=== PATIENT | female | born 1945 | race Caucasian/White ===

== ENCOUNTER → 2016-10-11 | Outpatient (CLI) | payer OTHER | END | disposition home or self-care (01) | LOC: C.MAMM 12:32 | PROVIDERS: ATTEND Internal Medicine | DX: M85.851 Other specified disorders of bone density and structure, right thigh (principal); M85.852 Other specified disorders of bone density and structure, left thigh; M85.88 Other specified disorders of bone density and structure, other site ==

== ENCOUNTER 2023-11-22 20:17 | Observation (INO) ==
[2023-11-22 22:27] LABS: Basophils # (auto) 0.02 K/uL (0.00-0.20); Basophils % (auto) 0.2 %; Eosinophils # (auto) 0.07 K/uL (0.00-0.50); Eosinophils % (auto) 0.7 %; Hematocrit (blood only) 43.1 % (37.0-47.0); Hemoglobin 14.5 g/dl (12.0-16.0); Immature Granulocytes # (auto) 0.03 K/uL (0.01-0.20); Immature Granulocytes % (auto) 0.3 %; Lymphocytes # (auto) 1.44 K/uL (1.20-3.40); Lymphocytes % (auto) 14.4 %; Mean Corpuscular Hemoglobin 30.1 pg (25.0-34.0); Mean Corpuscular Hgb Conc 33.6 g/dL (32.0-36.0); Mean Corpuscular Volume 89.4 fL (80.0-100.0); Mean Platelet Volume 9.4 fL (9.4-12.4); Monocytes # (auto) 0.62 K/uL (0.11-0.59); Monocytes % (auto) 6.2 %; Neutrophils # (auto) 7.85 K/uL (1.40-6.50); Neutrophils % (auto) 78.2 %; Platelet Count 301 K/uL (130-400); RDW Coefficient of Variation 12.5 % (11.5-14.5); RDW Standard Deviation 41.1 fL (36.4-46.3); Red Blood Count 4.82 M/uL (4.20-5.40); White Blood Count 10.03 K/ul (4.8-10.8)
--- NOTE | 2023-11-22 22:45 | Emergency Department Note ---
Impression & Plan Small bowel obstruction ED Provider Note CHIEF COMPLAINT: Abdominal pain HISTORY OF PRESENTING ILLNESS: This 78-year-old female patient presents to the emergency department for evaluation of abdominal pain and gas pains. The pain is across the middle of her abdomen. Symptoms started around noon today. Symptoms have gotten progressively worse. Having nausea, but no vomiting. Denies chest pain or SOB. Denies any urinary symptoms. Had a relatively normal BM this morning, just a little smaller than normal. She denies constipation or diarrhea. However, she has been burping, but has not been able to pass gas since yesterday. Previous history of "twisting" of her bowels from her adhesions per patient, but no history of bowel obstruction per patient. The patient had a hysterectomy, but no other abdominal surgeries. She denies any fevers. She rates her discomfort as 9/10. REVIEW OF SYSTEMS: See HPI for pertinent positives and pertinent negatives. ALLERGIES: Aspartame, Sucralose, Flagyl, Iron, Lactose MEDICATIONS: See below PAST MEDICAL HISTORY: See below PHYSICAL EXAM: VITALS: Vitals are noted on the nurse's note and reviewed by myself. GENERAL: Non toxic, no acute distress, non-diaphoretic. SKIN: Capillary refill <2 sec. EYES: PERRLA. EOMI. Conjunctivae without injection, sclerae without icterus. NOSE: Patent without discharge. MOUTH: Mucous membranes moist. Uvula midline. Airway patent. NECK: Supple without nuchal rigidity. HEART: Regular rate and rhythm without murmurs gallops or rubs. LUNGS: Clear to auscultation bilaterally without wheezes, rales or rhonchi. No retractions or accessory muscle use. ABDOMEN: Abdomen is somewhat distended with increased bowel sounds. The abdomen is still soft, but diffusely tender to palpation. No obvious masses or organomegaly. Arias sign negative. No CVA tenderness. Mild guarding, but no rigidity or rebound tenderness. No focal RLQ or LLQ tenderness. MUSCULOSKELETAL: No gross musculoskeletal defects. NEURO: Patient was alert and oriented. No focal neurological deficits. DIFFERENTIAL DIAGNOSIS: Differential diagnosis includes hepatitis, pancreatitis, cholecystitis, cholelithiasis, appendicitis, kidney stone, pyelonephritis, UTI, gastritis, gastroenteritis, mesenteric adenitis, obstruction, constipation, hernia, abdominal abscess, perforation, diverticulitis, IBD, ischemic colitis, abdominal aortic aneurysm, , ectopic , ovarian cyst, ovarian torsion, acute salpingitis, or others. ED COURSE AND MEDICAL DECISION MAKING: MEDICATIONS GIVEN: 500 mL normal saline solution bolus. Morphine 2 mg IV and Zofran 4 mg IV. MONITOR: Continuous nurse monitoring: Order was placed for continuous nurse monitoring. Patient was placed on the nurse monitoring and continuous pulse ox. Patient was noted to be in normal sinus rhythm at an initial rate of 80 bpm per my interpretation. INTERPRETATION OF LABS: I interpreted the labs with full lab results as below in the lab section of this note. Pertinent lab results discussed in the MDM section below. INTERPRETATION OF IMAGING: KUB interpreted by myself as increased stool with some dilated loops of bowel. No obvious transition point, but there is an unknown abnormality to the right side of the abdomen on imaging. Radiology report still pending. Additional imaging studies were interpreted by myself and read by radiology as per the imaging section of this note. CT scan of the abdomen pelvis with IV contrast shows a distended stomach with multiple dilated small bowel loops with a transition zone in the mid upper pelvis consistent with a high-grade small bowel obstruction. Retained formed stool seen throughout the colon. Dilated intrahepatic bile ducts. CONSULTATIONS: On-call hospitalist MDM SUMMARY: The patient was seen during a time of extreme volume and extreme acuity. Nursing triage protocols were initiated with IV lock, labs, and/or imaging studies conducted by protocol in the triage area. The patient was examined by myself once they were taken back to an exam room. The patient presents to the emergency department for evaluation of abdominal pain, nausea, and difficulty passing gas since noon today. She has a history of previous bowel obstructions. The patient was given 500 mL normal saline solution bolus, morphine 2 mg IV, and morphine 4 mg IV with significant improvement of her symptoms. Based on history and exam, there is concern for small bowel obstruction. KUB interpreted by myself as increased stool with some dilated loops of bowel. No obvious transition point, but there is an unknown abnormality to the right side of the abdomen. Radiology report still pending. CT scan of the abdomen pelvis with IV contrast shows a distended stomach with multiple dilated small bowel loops with a transition zone in the mid upper pelvis consistent with a high-grade small bowel obstruction. Retained formed stool seen throughout the colon. Dilated intrahepatic bile ducts. The patient is not vomiting so NG tube was held in the ER at this time. CBC without leukocytosis, anemia, or thrombocytopenia. Sodium 135, chloride 95, BUN 24, calcium 10.9, and glucose 109. CMP otherwise unremarkable. Lipase normal. High-sensitivity troponin normal. Urinalysis without evidence for UTI. I had a meaningful discussion about this patient with Dr. Martinez who agrees with my assessment and the treatment plan. I spoke with the on-call hospitalist who agreed to admit the patient for further evaluation and treatment. Please refer to their dictation for further details. The patient's care was transferred in stable condition. DIAGNOSIS: Small bowel obstruction Past Med/Surg History Problem List (Updated 11/23/23 @ 08:22 by Veena Bradshaw PA-C) Dehydration Small bowel obstruction (Acute) Encounter for pre-operative examination Epigastric abdominal pain Hypothyroid Medical History Hx of gastroesophageal reflux (GERD) improved Low glucose level per pt she has intermittent issues where her blood sugar levels drop and she takes glucose tablets History of cervical cancer 35yrs ago--had sx Temporomandibular joint disorder does exercises for this and has improved this Hypothyroid Surgical History Hx of cataract extraction left History of esophagogastroduodenoscopy (EGD) History of colonoscopy History of tooth extraction History of wisdom tooth extraction H/O: hysterectomy REBECCA BSO Family History Other No family history of adverse response to anesthesia Social History Smoking Status: Never smoker Second Hand Exposure: No; Do You Dip or Chew Tobacco: No; Hx Alcohol Use: Yes Alcohol type: wine Hx Substance Use: No Preferred Language: Tongan Communication Ability: Effective 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 Beliefs That Will Affect Care: None Current Living Situation: Alone Feels Safe at Home: Yes Assistive Devices: Glasses Allergies Allergies Allergy/AdvReac Type Severity Reaction Status Date / Time aspartame Allergy Intermediate blisters Verified 06/25/23 09:18 in mouth sucralose Allergy Intermediate blisters Verified 06/25/23 09:18 in mouth metronidazole [From Flagyl] Allergy Mild lightheaded Verified 06/25/23 09:18 /nausea iron AdvReac Mild gas Verified 06/25/23 09:18 lactose AdvReac Mild Gastrointestinal Verified 06/25/23 09:18 Upset Home Meds Home Medications Medication Instructions Recorded Confirmed chlorpheniramine maleate 12 mg 12 mg PO Q12H PRN Allergy Symptoms 03/14/22 06/18/23 tablet,extended release levothyroxine 75 mcg tablet 75 mcg PO QAM 03/14/22 06/18/23 ascorbic acid (vitamin C) 1,000 mg 1 g PO QDL 08/16/22 06/18/23 tablet (Vitamin C) calcium carbonate (Calcium 600) 600 mg PO QDL 08/16/22 06/18/23 multivitamin 1 tab PO QDL 08/16/22 06/18/23 pseudoephedrine HCl 60 mg tablet 60 mg PO Q6H PRN allergy symptoms 08/16/22 06/18/23 Results & Data (ED) Vital Signs Vital Signs - 24 hr 11/22/23 20:34 11/22/23 23:36 11/23/23 00:00 Temperature 36 C L Temperature Source Temporal Artery Scan Pulse Rate 81 75 74 Pulse Rate from SpO2 Sensor 74 Pulse Rhythm Regular Pulse Strength Normal Respiratory Rate 16 14 Respiratory Effort / Characteristics Non-Labored Spontaneous Respiratory Depth Normal Respiratory Pattern Regular Blood Pressure 165/75 H 166/79 H Blood Pressure Mean 105 115 Pulse Oximetry 100 99 Oxygen Delivery Method Room Air Sepsis Recent Fever Within 48 Hours No Sepsis New/Unexplained Change in Mental Status No Sepsis Action Taken by Nursing No Action Required 11/23/23 01:33 11/23/23 02:00 11/23/23 02:33 Temperature Temperature Source Pulse Rate 79 74 68 Pulse Rate from SpO2 Sensor Pulse Rhythm Pulse Strength Respiratory Rate 14 14 18 Respiratory Effort / Characteristics Respiratory Depth Respiratory Pattern Blood Pressure 155/79 H 139/73 142/74 H Blood Pressure Mean 104 95 96 Pulse Oximetry 96 97 97 Oxygen Delivery Method Room Air Room Air Room Air Sepsis Recent Fever Within 48 Hours Sepsis New/Unexplained Change in Mental Status Sepsis Action Taken by Nursing 11/23/23 03:39 Temperature Temperature Source Pulse Rate 93 H Pulse Rate from SpO2 Sensor Pulse Rhythm Pulse Strength Respiratory Rate Respiratory Effort / Characteristics Respiratory Depth Respiratory Pattern Blood Pressure Blood Pressure Mean Pulse Oximetry Oxygen Delivery Method Sepsis Recent Fever Within 48 Hours Sepsis New/Unexplained Change in Mental Status Sepsis Action Taken by Nursing Laboratory Data 11/22/23 21:39 11/22/23 21:39 Lab Results 11/22/23 11/22/23 11/23/23 Range/Units 21:39 Unknown 01:38 WBC 10.03 (4.8-10.8) K/ul RBC 4.82 (4.20-5.40) M/uL Hgb 14.5 (12.0-16.0) g/dl Hct 43.1 (37.0-47.0) % MCV 89.4 (80.0-100.0) fL MCH 30.1 (25.0-34.0) pg MCHC 33.6 (32.0-36.0) g/dL RDW Std Deviation 41.1 (36.4-46.3) fL RDW Coeff of Denilson 12.5 (11.5-14.5) % Plt Count 301 (130-400) K/uL MPV 9.4 (9.4-12.4) fL Immature Gran % (Auto) 0.3 % Neut % (Auto) 78.2 % Lymph % (Auto) 14.4 % [place] % (Auto) 6.2 % Eos % (Auto) 0.7 % Baso % (Auto) 0.2 % Neut # (Auto) 7.85 H (1.40-6.50) K/uL Lymph # (Auto) 1.44 (1.20-3.40) K/uL [place] # (Auto) 0.62 H (0.11-0.59) K/uL Eos # (Auto) 0.07 (0.00-0.50) K/uL Baso # (Auto) 0.02 (0.00-0.20) K/uL Immature Gran # (Auto) 0.03 (0.01-0.20) K/uL Sodium 135 L (136-145) mmol/L Potassium 4.1 (3.5-5.1) mmol/L Chloride 95 L (98-107) mmol/L Carbon Dioxide 30 (21-32) mmol/L Anion Gap 10 (3-11) BUN 24 H (6-23) mg/dl Creatinine 0.78 (0.6-1.2) mg/dl Est Cr Clr Drug Dosing 45.2 ml/min Est GFR ( Amer) 85.6 ml/min Est GFR (Non-Af Amer) 73.8 ml/min BUN/Creatinine Ratio 30.8 H (10-20) Glucose 109 H (70-99(Fasting)) mg/dl POC Glucose 125 H (70-99) mg/dl Calcium 10.9 H (8.6-10.3) mg/dl Total Bilirubin 0.5 (0.2-1.0) mg/dl AST 30 (13-39) U/L ALT 20 (7-52) U/L Alkaline Phosphatase 75 (34-104) U/L Troponin I High Sens 7.6 (0-14) pg/ml Total Protein 8.2 (6.0-8.3) gm/dl Albumin 5.0 (3.4-5.0) gm/dl Globulin 3.2 (2.5-4.0) gm/dl Albumin/Globulin Ratio 1.6 (0.9-2) Lipase 17 (11-82) U/L Urine Color Yellow Urine Appearance Turbid A (Clear) Urine pH >= 9.0 H (4.5-7.5) Ur Specific [place] 1.014 (1.000-1.030) Urine Protein Negative (Negative) Urine Glucose (UA) Negative (Negative) Urine Ketones Negative (Negative) Urine Blood Negative (Negative) Urine Nitrite Negative (Negative) Urine Bilirubin Negative (Negative) Urine Urobilinogen Negative (Negative) Ur Leukocyte Esterase Negative (Negative) Urine WBC (Auto) 0-5 (0-5) /hpf Urine RBC (Auto) 11-20 H (0-2) /hpf U Hyaline Cast (Auto) 0-2 (0-2) /lpf U Epithel Cells (Auto) 0-2 (0-2) /hpf Urine Bacteria (Auto) None Seen (None Seen) Administered Medications Potassium Chloride/Sodium Chloride (Normal Saline W/20 Meq Kcl) 20 meq in 1,000 mls @ 100 mls/hr IV .Q10H FILIPE; Protocol Stop: 12/23/23 06:14 Last Admin: 11/23/23 06:17 Dose: 100 mls/hr Documented By: MLM Levothyroxine Sodium (Levothyroxine Sodium 75 Mcg Tablet) 75 mcg PO DAILYBB FILIPE Stop: 12/23/23 06:29 Last Admin: 11/23/23 06:13 Dose: 75 mcg Documented By: AVA Discontinued Medications Bisacodyl (Bisacodyl 10 Mg Supp) 10 mg SC NOW STA Stop: 11/23/23 04:08 Last Admin: 11/23/23 04:22 Dose: 10 mg Documented By: MARIA FERNANDA Sodium Chloride (Nss) 500 mls @ 999 mls/hr IV .Q31M ONE Stop: 11/22/23 23:35 Last Infusion: 11/22/23 23:42 Dose: Infused Documented By: KelT Admin: 11/22/23 23:11 Dose: 999 mls/hr Documented By: MARIA FERNANDA Ioversol (Optiray 320 100ml) 94 ml IV ONCE ONE Stop: 11/22/23 23:34 Last Admin: 11/22/23 23:33 Dose: 94 ml Documented By: CARLIE Morphine Sulfate (Morphine Sulfate 2 Mg/Ml Carp) 2 mg IV NOW STA Stop: 11/22/23 23:06 Last Admin: 11/22/23 23:10 Dose: 2 mg Documented By: MARIA FERNANDA Ondansetron HCl (Ondansetron Inj 2 Mg/Ml 2 Ml Vial) 4 mg IV NOW STA Stop: 11/22/23 23:06 Last Admin: 11/22/23 23:10 Dose: 4 mg Documented By: MARIA FERNANDA Imaging Data Radiologist's Impression: Abdomen/Pelvis CT 11/22/23 23:05 Exam(s): CT ABDOMEN + PELVIS With Contrast IV Amt: 94 ml opti 320 EXAM: CT Abdomen and Pelvis With Intravenous Contrast CLINICAL HISTORY: Reason for exam: Abdominal pain - eval obstruction or other etiology. TECHNIQUE: Axial computed tomography images of the abdomen and pelvis with intravenous contrast. CTDI is 11.37 mGy and DLP is 493.94 mGy-cm. Automated exposure control was utilized for the study. A dose lowering technique was utilized adhering to the principles of ALARA. CONTRAST: Patient received 94 ml opti 320 of IV contrast COMPARISON: Ultrasound abdomen: 08/07/2022 FINDINGS: Diagnostic sensitivity of the exam is reduced by motion artifact. Lung bases: . No mass. No consolidation. No pleural effusion. Mild/moderately enlarged cardiac silhouette. ABDOMEN: Liver: Multiple small rounded hypodense lesions in the right lobe, statistically represent cysts. No solid mass. Gallbladder and bile ducts: Unremarkable. No calcified stones. Dilated intrahepatic bile ducts. Pancreas: Likely an atrophic pancreas. No pancreatic ductal dilation. Spleen: Unremarkable. No splenomegaly. Adrenals: Unremarkable. No mass. Kidneys and ureters: Unremarkable. No solid mass. Mild fullness of the left renal collecting system. No hydronephrosis. Stomach and bowel: Fluid-filled significantly distended and patulous stomach. There are multiple 3.7 cm dilated fluid/air filled small bowel loops are seen throughout the abdomen and pelvis with transition zone seen in the mid upper pelvis (series 2 image 57, series 300 image 28), consistent with high-grade small bowel obstruction. Moderately large amount of retained stool seen throughout the colon. PELVIS: Appendix: No acute findings in the region of the appendix. Bladder: Unremarkable. No mass. Reproductive: Prior partial hysterectomy ABDOMEN and PELVIS: Intraperitoneal space: Unremarkable. No free air. No significant fluid collection. Bones/joints: No acute fracture. No dislocation. Degenerative grade 1 L4 spondylolisthesis. L4-S1 levels moderate degenerative spondylitic changes. Soft tissues: Unremarkable. Vasculature: Unremarkable. No abdominal aortic aneurysm. Lymph nodes: Unremarkable. No enlarged lymph nodes. . IMPRESSION: A distended stomach. Multiple dilated small bowel loops with a transition zone in the mid upper pelvis, consistent with high-grade small bowel obstruction. Retained formed stool seen throughout the colon. Dilated intrahepatic bile ducts. . Electronically signed by: Celina Orlando MD, MIC 11/23/23 02:45 AM Discharge Plan Visit Data Chief Complaint: Abdominal Pain Stated Complaint: ABD GAS/PAIN ED Provider: Abida Martinez ED Midlevel Provider: Veena Bradshaw Discharge Problem: Small bowel obstruction Patient Disposition: Admitted As Inpatient Condition: Good Discharge Instructions Interventions: ED Discharge Assessment Last Done: 11/23/23 05:48
[2023-11-22 22:50] LABS: Albumin Globulin Ratio 1.6 (0.9-2); BUN Creatinine Ratio 30.8 (10-20); Bilirubin,Total 0.5 mg/dl (0.2-1.0); Calcium 10.9 mg/dl (8.6-10.3); Creatinine Clr Calc Pharmacy 45.2 ml/min; Est GFR (African American) 85.6 ml/min; Est GFR (Non-African American) 73.8 ml/min; Globulin 3.2 gm/dl (2.5-4.0); Potassium 4.1 mmol/L (3.5-5.1); Total Protein 8.2 gm/dl (6.0-8.3)
[2023-11-22 22:52] LABS: Appearance Urine Turbid (Clear); Bacteria Urine Automated None Seen (None Seen); Bilirubin Urine Negative (Negative); Blood Urine Negative (Negative); Cast Urine Automated 0-2 /lpf (0-2); Color Urine Yellow; Epithelial Cell Urine Auto 0-2 /hpf (0-2); Glucose Urine UA Negative (Negative); Ketones Urine Negative (Negative); Leukocyte Esterase Urine Negative (Negative); Nitrite Urine Negative (Negative); Protein Urine Negative (Negative); Specific Gravity Urine 1.014 (1.000-1.030); Urobilinogen Urine Negative (Negative); WBC Urine Automated 0-5 /hpf (0-5); pH Urine >= 9.0 (4.5-7.5)
[2023-11-22] MEDS: ONDANSETRON INJ 2 MG/ML 2 ML VIAL IV STA (23:10)
[2023-11-22] MEDS: MoRPHine SULFATE 2 MG/ML CARP IV STA (23:10)
[2023-11-22] MEDS: SODIUM CHLORIDE 0.9% 500 ML IV ONE (23:11)
[2023-11-22] MEDS: OPTIRAY 320 100ml IV ONE (23:33)
[2023-11-22 23:44] LABS: Troponin I High Sensitivity 7.6 pg/ml (0-14)
--- OUTSIDE RECORDS SUMMARY | 2023-11-22 23:59 | External Medical Summary | Continuity of Care Document ---
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 Role Phone Loren Mendieta Primary Care Physician [phone] Encounter [facility] [id number] Date(s): 09/16/23 - 09/16/23 [facility] [address] [facility] [address] [place] [id number] Encounter Diagnosis Seborrheic keratosis(Discharge Diagnosis) - 09/14/23 Matute angioma(Discharge Diagnosis) - 09/14/23 Multiple benign nevi(Discharge Diagnosis) - 09/16/23 Keratoderma(Discharge Diagnosis) - 09/16/23 Onychodystrophy(Discharge Diagnosis) - 09/16/23 Discharge Disposition: Home or Self Care Attending Physician: WILLIAM Carcamo Holly C Allergies, Adverse Reactions, Alerts Substance Criticality Severity Reaction Reaction Severity Status Flagyl Nausea Active sucralose (Splenda) Blisters on tongue Active aspartame Mouth blisters Activ e Assessment and Plan Extracted from: Title:Dermatology Office Visit Note Author:WILLIAM Carcamo Holly C Date:09/16/23 1.Seborrheic keratosis Chronic Stable Discussed benign nature of lesions. May treat prn if become painful or irritated. Discussed signs and symptoms of skin cancer with patient and advised to call and schedule an appointment if develops any new or concerning lesions or wounds that won't heal. Advised to wear hats, sunscreens and SPF clothing. 2.Matute angioma Matute angioma Chronic Stable Discussed the likely benign and genetic nature of these lesions. will monitor. no treatment needed. 3.Multiple benign nevi Chronic Stable Encouraged patient tocall with any concerning lesions, changing lesions, or wounds that won t healin the futureand schedule prompt evaluation in clinic. Recommended patient wear a broad spectrum sunscreen with at least SPF 30 daily. Wear wide brim hats and SPF clothing. No lesions suspicious for cancer. 4.Keratoderma Chronic Knees, feet, moisturize withCeraVesalicylic acid may be used on these areas and on the seborrheic keratosis. 5.Onychodystrophy Fingernails. Chronic Stable soak in luke warmwater for 5-10 minutes then moisturizer with Vaseline or moisturizer. History of actinic keratosis Chronic. Stable. Goal is no symptomatic actinic keratoses or actinic keratoses evolving to skin cancer. Education - risk for evolution to skin cancer is very low. explained to patient that this is considered a precancerous lesion.Warning signs of skin cancer were reviewed. Protection from sun exposure with wide brim hats, sunscreens, and SPF clothing, shade, going out in the morning or evening. Advised patient to call with any problems, questions, or concerns. States understanding. Patient was seen independently,Dr Braggavailable for immediate collaboration as needed during this visit. Will follow up in 1 yearfor skin exam Immunizations Given and Recorded Vaccine Date Status Refusal Reason pneumococcal 20-valent conjugate vaccine 1 02/15/23 Recorded SARS-CoV-2 (COVID-19) mRNA-vacc - [id number] 2 01/10/23 Recorded SARS-CoV-2 mRNA-1273 (6y+ bivalent) 3 02/08/22 Rec orded SARS-CoV-2 (COVID-19) mRNA-1273 vaccine 4 10/03/21 Recorded SARS-CoV-2 (COVID-19) mRNA-1273 vaccine 5 03/17/21 Recorded influenza virus vaccine, inactivated 01/10/21 Give n influenza virus vaccine, inactivated 01/05/20 Give n SARS-CoV-2 (COVID-19) mRNA BNT-162b2 vax 05/05/20 Recorded tetanus/diphtheria/pertuss, acel (Tdap) 07/13/19 R ecorded tetanus/diphtheria/pertuss, acel (Tdap) 07/01/19 R ecorded tetanus/diphtheria/pertuss, acel (Tdap) 6 02/07/10 Recorded zoster vaccine, inactivated 09/09/18 Given zoster vaccine, inactivated 05/05/18 Given pneumococcal 23-valent vaccine 7 09/10/13 Recorded zoster vaccine live 05/10/11 Recorded 1Result Comment: 2023-03-04: Historical information-source unspecified 2Result Comment: 2023-03-04: Historical information-source unspecified 3Result Comment: 2023-03-04: Historical information-source unspecified 4Result Comment: 2023-03-04: Historical information-source unspecified 5Result Comment: 2023-03-04: Historical information-source unspecified 6Result Comment: 2023-03-04: Historical information-source unspecified 7Result Comment: Route: Intramuscularly Food Production Manager: [employer] Medications Calcitrate Start: 09/10/16 2:55:00 PM EDT, 1 tab, PO, Daily Start Date: 09/10/16 Status: Ordered Caltrate 600 Plus oral tablet Start: 10/23/22 11:20:00 AM EDT, 1 tab, PO, Daily Start Date: 10/23/22 Status: Ordered Centrum Start: 09/10/16 2:55:00 PM EDT, 1 tab, PO, Daily Start Date: 09/10/16 Status: Ordered Chlor-Trimeton Start: 07/30/22 3:55:00 PM EDT, PRN: as needed for allergy symptoms Start Date: 07/30/22 Status: Ordered Flonase 50 mcg/inh nasal spray Start: 05/10/23 11:15:00 AM EST, 1 spray, each nostril, Daily Start Date: 05/10/23 Status: Ordered levothyroxine 75 mcg (0.075 mg) oral tablet Start: 02/14/23 6:46:00 PM EST, 1 tab, PO, Daily, Disp# 90 tab, Refills: 3, Pharmacy: [id number] Start Date: 02/14/23 Status: Ordered Sudafed Start: 09/10/16 2:54:00 PM EDT, PRN: as needed for congestion Start Date: 09/10/16 Status: Ordered Suprep Bowel Prep Kit oral liquid Start: 08/14/23 3:13:00 PM EDT, See Instructions, Disp# 354 mL, Refills: 0, Take as directed., Pharmacy: [id number] Start Date: 08/14/23 Status: Ordered Vitamin C Start: 07/05/20 9:30:00 AM EDT Start Date: 07/05/20 Status: Ordered Vitamin D and K oral tablet Start: 06/04/23 1:05:00 PM EST Start Date: 06/04/23 Status: Ordered Mental Status 09/16/23 Barriers to Learning one year None evide nt Mandatory Health Literacy Documentation Yes Health Literacy Communication Barriers N ever Primary Language Yakut Problem List Condition Confirmation Course Effective Dates Status H ealth Status Informant Body mass index [BMI] 21.0-21.9, adult Confirmed Active Callus Confirmed Active Chest pain Confirmed Active Costochondritis Confirmed Active Gas bloat syndrome Confirmed Active ETD (eustachian tube dysfunction) Confirmed Active Fatigue Confirmed Active Hammertoe, bilateral Confirmed Active Heartburn Confirmed Active H/O small bowel obstruction Confirmed Active Low blood sugar Confirmed Active Hypothyroidism Confirmed Active Idiopathic postprandial hypoglycemia Confirmed Active Jaw pain Confirmed Active Intermittent lightheadedness Confirmed Active Low back pain Confirmed Active Metatarsalgia of both feet Confirmed Active Trace mitral valve regurgitation Confirmed Active Tinea unguium Confirmed Active Osteopenia Confirmed Active Annual physical exam Confirmed Active Encounter for preoperative assessment Confirmed Active Poor balance Confirmed Active Seborrheic keratosis Confirmed Active Matute angioma Confirmed Active Shoulder pain Confirmed Active Seasonal allergies Confirmed Active Tinnitus Confirmed Active Diagnosis Diagnosis Type Effective Dates Health Status Clinical Service Informant Seborrheic keratosis Discharge Diagnosis 09/14/23 Non-Specified Matute angioma Discharge Diagnosis 09/14/23 Non-Specified Onychodystrophy Discharge Diagnosis 09/16/23 Non-Specified Keratoderma Discharge Diagnosis 09/16/23 Non-Specified Multiple benign nevi Discharge Diagnosis 09/16/23 Non-Specified Procedures Procedure Date Related Diagnosis Body Site Status Colonoscopy 1, 2 08/28/23 Complete d Cataract 07/2023 Completed Cataract surgery of left eye 3 06/13/23 Completed Plain X-ray of left shoulder 4 10/01/22 Completed Upper GI (gastrointestinal) endoscopy 5, 6 08/28/22 Completed Ultrasound 7 08/07/22 Completed X-ray tomography of lumbar spine 8 01/20/19 Completed Bone density scan 9 10/11/16 Compl eted Hysterectomy Completed 1- The rectum, sigmoid colon, descending colon, splenic flexure, transverse colon, hepatic flexure, ascending colon, cecum and recto-sigmoid colon are normal. - No specimens collected. 2- No repeat colonoscopy due to age. [address] [place] [address] 4no evidence of acute osseous injury. 5Normal esophagus. Normal stomach. Biopsied. Normal duodenal bulb and second portion of the duodenum. 6Pathology: Stomach biopsy: Gastric mucosa with no diagnostic abnormality. Negative for intestinal metaplasia, dysplasia, and malignancy. Neg H.pylori. 71) No cholelithiasis or sonographic evidence for acute cholecystitis 2) No biliary ductal dilation 8Moderate degenerative changes. Osteopenia 9[facility] Impression: 1. AP spine T-score: -2.2 2. Femur neck left T-score: -1.5 3. Femur neck right T-score: -1.8 4. Femur total mean T-score: -1.1 5. Z-score: -0.6 6. BMD is considered within normals limits relative to their age Social History Social History Type Response Smoking Status Never smoked cigaret billy Sex Female Dermatology Outpatient Note * IWLLIAM Carcamo, Mayda Overton: PERFORM Event Display: Dermatology Outpt Note Authored Date: [id number] Chief Complaint Annual skin check. hx actinic keratosis. No concerns. History of Present Illness 77 YearsoldFemalepatient here for skin check. Patient reports area of concern today: spots to be checked. Family history melanoma:no Family history of BCC or SCC yes brotheron leg may have been anSCC KA type and another lesion. Tanning bed use:no History of severe, blistering sunburns:yes Sun protection:Useshats and sunscreens Has had actinic keratosis treated in the past withliquid nitrogen Denies history of skin cancer. No other skin areas of concern. Otherwise healthy.Saw Staci 12/20/2022 for cryotherapy to Seborrheic keratosis. Has seen Dr Remy in the past with cryotherapy to Actinic keratosis on left forearm at 3 different visits, and right cheek. Physical Exam General: Well developed, well nourished, white female, in no acute distress. Oriented x3 with appropriate mood and affect. Skin: skin exam performed of hair, scalp, ears, face, nose, lips, neck, chest, abdomen, back, axilla, upper extremities, hands. brown waxy keratotic papules and plaques consistent with seborrheic keratoses. less than 6mm in diameter round brown macules consistent with benign nevi within normal limits under dermoscopy. keratoderma of knees. fingernails dry with ridges. Denied any other areas of concerns Assessment/Plan 1.Seborrheic keratosis Chronic Stable Discussed benign nature of lesions. May treat prn if become painful or irritated. Discussed signs and symptoms of skin cancer with patient and advised to call and schedule an appointment if develops any new or concerning lesions or wounds that won't heal. Advised to wear hats, sunscreens and SPF clothing. 2.Matute angioma Matute angioma Chronic Stable Discussed the likely benign and genetic nature of these lesions. will monitor. no treatment needed. 3.Multiple benign nevi Chronic Stable Encouraged patient tocall with any concerning lesions, changing lesions, or wounds that wont healin the futureand schedule prompt evaluation in clinic. Recommended patient wear a broad spectrum sunscreen with at least SPF 30 daily. Wear wide brim hats and SPF clothing. No lesions suspicious for cancer. 4.Keratoderma Chronic Knees, feet, moisturize withCeraVesalicylic acid may be used on these areas and on the seborrheic keratosis. 5.Onychodystrophy Fingernails. Chronic Stable soak in luke warmwater for 5-10 minutes then moisturizer with Vaseline or moisturizer. History of actinic keratosis Chronic. Stable. Goal is no symptomatic actinic keratoses or actinic keratoses evolving to skin cancer. Education - risk for evolution to skin cancer is very low. explained to patient that this is considered a precancerous lesion.Warning signs of skin cancer were reviewed. Protection from sun exposure with wide brim hats, sunscreens, and SPF clothing, shade, going out in the morning or evening. Advised patient to call with any problems, questions, or concerns. States understanding. Patient was seenindependently,Dr Braggavailable for immediate collaboration as needed during this visit. Will follow up in1 yearfor skin exam Problem List/Past Medical History Ongoing Annual physical exam Body mass index [BMI] 21.0-21.9, adult Callus Matute angioma Chest pain Costochondritis Encounter for preoperative assessment ETD (eustachian tube dysfunction) Fatigue Gas bloat syndrome H/O small bowel obstruction Hammertoe, bilateral Heartburn Hypothyroidism Idiopathic postprandial hypoglycemia Intermittent lightheadedness Jaw pain Low back pain Low blood sugar Metatarsalgia of both feet Osteopenia Poor balance Seasonal allergies Seborrheic keratosis Shoulder pain Tinea unguium Tinnitus Trace mitral valve regurgitation Procedure/Surgical History Colonoscopy| Service Date: 4Cataract| Service Date: ataract surgery of left eye| Service Date: 4Plain X-ray of left shoulder| Service Date: 10/01/2022Upper GI(gastrointestinal) endoscopy| Service Date: 08/28/2022Ultrasound| Service Date: 08/07/2022X-ray tomography of lumbar spine| Service Date: 01/20/2019Bone density scan| Service Date: 10/11/2016Hysterectomy Medications ascorbic acid(Vitamin C) calcium citrate(Calcitrate), 1 tab, PO, Daily chlorpheniramine(Chlor-Trimeton), PRN fluticasone nasal(Flonase 50 mcg/inh nasal spray), 1 spray, each nostril, Daily levothyroxine(levothyroxine 75 mcg (0.075 mg) oral tablet), 1 tab, PO, Daily magnesium sulfate/potassium sulfate/sodium sulfate(Suprep Bowel Prep Kit oral liquid), See Instructions multivitamin(Vitamin D and K oral tablet) multivitamin with minerals(Centrum), 1 tab, PO, Daily multivitamin with minerals(Caltrate 600 Plus oral tablet), 1 tab, PO, Daily pseudoephedrine(Sudafed), PRN Allergies FlagylNausea aspartameMouth blisters sucralose (Splenda)Blisters on tongue Social History Smoking Status Never smoked cigarettes Family History Cardiovascular disease: Mother and Father. Health Status Family Member(s) Family Member(s) Relationship: Mother, Age: 87 Years Relationship: Father, Age: 87 Years Electronic Signature on File Electronically Reviewed/Signed by: Mayda Carcamo PA-C Author Signature Dt/Tm:09/16/2023 02:32 PM Department of Dermatology Electronically Reviewed/Signed by: Mary Carmen Bragg MD Cosigner Signature Dt/Tm: 09/16/2023 03:21 PM Department of Dermatology [facility] Patient Care team information Care Team Personnel Name: DO Quinones Franklin J Position: Physician - Family Med Member Role: Lifetime Relationship Address: Address: [address] [facility] [address] [place] [address] [place] Name: MD Gayatri, Loren Xavier Position: Physician - Family Med Member Role: Primary Care Provider Address: Address: [address] [place] [address] [address] [place] [address] [place] Name: MD Adwoa, Kt Position: Resident Member Role: Lifetime Relationship Address: Address: [address] [address] [place] Care Team Related Persons Name: DAYANARA GREGG Address: home [address] [facility] [id number]"
--- OUTSIDE RECORDS SUMMARY | 2023-11-22 23:59 | External Medical Summary | Continuity of Care Document ---
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 Role Phone Loren Mendieta Primary Care Physician [phone] Encounter [facility] [id number] Date(s): 07/10/23 - 07/10/23 [facility] [address], [address] [place] [address] [phone] Encounter Diagnosis Fatigue(Discharge Diagnosis) - 07/09/23 Gas bloat syndrome(Discharge Diagnosis) - 07/09/23 Hypothyroidism(Discharge Diagnosis) - 07/09/23 ETD (eustachian tube dysfunction)(Discharge Diagnosis) - 07/10/23 Mild aortic regurgitation(Discharge Diagnosis) - 07/11/23 Heartburn(Discharge Diagnosis) - 07/09/23 Trace mitral valve regurgitation(Discharge Diagnosis) - 07/11/23 Discharge Disposition: Home or Self Care Attending Physician: MD Mendieta Amy L Allergies, Adverse Reactions, Alerts Substance Reaction Severity Status Flagyl Nausea Active sucralose (Splenda) Blisters on tongue Ac tive aspartame Mouth blisters Active Assessment and Plan Extracted from: Title:Office Visit Note Author:MD Mendieta Amy L D ate:07/11/23 1.Fatigue STATUS : chronic, stable. DATA : hx & exam reviewed. GOAL : restore energy. PLAN : reviewed previous labs, which were essentially unrevealing. In addition, she did not feel that energy was any different after adjustment of thyroid dose, or after taking sedating anti-histamine. On extensive discussion with pt, it is apparent that her usual daily routine is significantly more active than most other people in their 70's. She, herself, acknowledges "I have to accept that I'm getting old."Will continue observation. 2.Hypothyroidism Status : chronic, stable. Data : sx reviewed. Goal : maintain euthyroid state. Plan : lastTSH was therapeutic in 01/21. She feels that her energy level is good with current dose. 3.Gas bloat syndrome STATUS: Chronic, waxing & waning. DATA: hx & examreviewed. GOAL: Maintain GI stability. PLAN: would tend to doubt serious etiology, as she states that these sx are fleeting & have been present & unchanged for years. In addition, there has been no progression of sx & they are not debilitating in any way. She had seen GI in recent past, & EGD was without significant abnormality. Will continue to monitor. 4.ETD (eustachian tube dysfunction) STATUS: Chronic, improved. DATA: hx & examreviewed. Suspect that allergyis exacerbating ear sx. GOAL: control allergic sx. PLAN: suggested that she coulduse OTC nasal steroid spray. instead of current allergy regimen. However, she would prefer to continue her current meds. 5.Mild aortic regurgitation STATUS: new finding, stable. DATA: ECHOreviewed. GOAL: Maintain cardiovascular stability. PLAN: discussed that this requires no tx at present & may consider doing another ECHO in 1 yr to follow. Cont current monitoring. 6.Trace mitral valve regurgitation STATUS: new finding, stable. DATA: ECHOreviewed. GOAL: Maintain cardiovascular stability. PLAN: discussed that this requires no tx at present. 7.Heartburn STATUS: Chronic, controlled. DATA: hx & examreviewed. GOAL: relieve sx of acid reflux. PLAN: she has been able to wean off of all of her acid-reducing medications, with only infrequent flare-ups.Stay vigilant with diet & non-pharmacological measures. Return in 6 months. Time:Total time spent with this patient on day of evaluation including chart review, ordering, education and coordination of care elements: 37_ minutes Immunizations Given and Recorded Vaccine Date Status Refusal Reason pneumococcal 20-valent conjugate vaccine 1 02/15/23 Recorded SARS-CoV-2 (COVID-19) mRNA-vacc - [id number] 2 01/10/23 Recorded SARS-CoV-2 mRNA-1273 (6y+ bivalent) [...] Historical information-source unspecified 7Result Comment: Route: Intramuscularly Rn Managed Care: [employer] Medications Calcitrate Start: 09/10/16 14:55:00, 1 tab, PO, Daily Start Date: 09/10/16 Status: Ordered Caltrate 600 Plus oral tablet Start: 10/23/22 11:20:00 EDT, 1 tab, PO, Daily Start Date: 10/23/22 Status: Ordered Centrum Start: 09/10/16 14:55:00, 1 tab, PO, Daily Start Date: 09/10/16 Status: Ordered Chlor-Trimeton Start: 07/30/22 15:55:00 EDT, PRN: as needed for allergy symptoms Start Date: 07/30/22 Status: Ordered Flonase 50 mcg/inh nasal spray Start: 05/10/23 11:15:00 EST, 1 spray, each nostril, Daily Start Date: 05/10/23 Status: Ordered levothyroxine 75 mcg (0.075 mg) oral tablet Start: 02/14/23 18:46:00 EST, 1 tab, PO, Daily, Disp# 90 tab, Refills: 3, Pharmacy: [id number] Start Date: 02/14/23 Status: Ordered Sudafed Start: 09/10/16 14:54:00, PRN: as needed for congestion Start Date: 09/10/16 Status: Ordered Vitamin C Start: 07/05/20 9:30:00 EDT Start Date: 07/05/20 Status: Ordered Vitamin D and K oral tablet Start: 06/04/23 13:05:00 EST Start Date: 06/04/23 Status: Ordered Mental Status 07/10/23 Barriers to Learning one year None evide nt Mandatory Health Literacy Documentation Yes Health Literacy Communication Barriers N ever Primary Language [place] Problem List Condition Confirmation Course Effective Dates [...] balance Confirmed Active Seborrheic keratosis Confirmed Active Shoulder pain Confirmed Active Seasonal allergies Confirmed Active Tinnitus Confirmed Active Diagnosis Diagnosis Type Effective Dates Health Status Clinical Service Informant Heartburn Discharge Diagnosis 07/09/23 Fatigue Discharge Diagnosis 07/09/23 Gas bloat syndrome Discharge Diagnosis 07/09/23 Hypothyroidism Discharge Diagnosis 07/09/23 ETD (eustachian tube dysfunction) Discharge Diagnosis 07/10/23 Non-Specified Trace mitral valve regurgitation Discharge Diagnosis 07/11/23 Non-Specified Mild aortic regurgitation Discharge Diagnosis 07/11/23 Non-Specified Procedures Procedure Date Related Diagnosis Body Site Status Cataract surgery of left eye 1 06/13/23 Completed Plain X-ray of left shoulder 2 10/01/22 Completed Upper GI (gastrointestinal) endoscopy 3, 4 08/28/22 Completed Ultrasound 5 08/07/22 Completed X-ray tomography of lumbar spine 6 01/20/19 Completed Bone density scan 7 10/11/16 Compl [facility] of [facility]. 3Normal esophagus. Normal stomach. Biopsied. Normal duodenal bulb and second portion of the duodenum. 4Pathology: Stomach biopsy: Gastric mucosa with no diagnostic abnormality. Negative for intestinal metaplasia, dysplasia, and malignancy. Neg H.pylori. 51) No cholelithiasis or sonographic evidence for acute cholecystitis 2) No biliary ductal dilation 6Moderate degenerative changes. Osteopenia 7[facility] Impression: 1. AP spine T-score: -2.2 2. Femur neck left T-score: -1.5 3. Femur neck right T-score: -1.8 4. Femur total mean T-score: -1.1 5. Z-score: -0.6 6. BMD is considered within normals limits relative to their age Vital Signs Most recent to oldest [Reference Range]: 1 Patient Weight 52.4 kg (07/10/23 1:04 PM) Temperature [36.5-37.9 DegC] 36.7 DegC (07/10/23 1:04 PM) Heart Rate 80 bpm (07/10/23 1:04 PM) Respiratory Rate 20 br/min (07/10/23 1:04 PM) Blood Pressure 128/62mmHg (07/10/23 1:04 PM) Cuff Pulse Pressure 66 mmHg (07/10/23 1:04 PM) BP Location # 1 Left Arm, Manual (07/10/23 1:04 PM) Social History Social History Type Response Smoking Status Never smoked cigaret billy Sex Female [facility] Outpt Note * MD Gayatri, Loren Xavier: PERFORM Event Display: [facility] Outpt Note Authored Date: [id number] Chief Complaint Routine follow-up History of Present Illness * This patient is being followed longitudinally for chronic serious medical problems by Dr. Loren Mendieta. Their most recent visitwith Dr. Mendieta:01/15/23 Here for recheck of following concerns : 1)Gas bubbles - she has sensation of gas bubbles getting stuck at one area in her RLQ. She willget pain, then after few minutes, she can feel the gas progress thru this area & pain resolves. She was admitted to hospital years ago for a volvulus & she was told that it was in this area. She has had no change in BM's, no blood in stool or black stool. Her appetite is good, rare heartburn or nausea, but no vomiting. 2) Right ear - this feels congested. Is not an ear pain, not much nasal or sinus congestion. She uses Sudafed & Chlor-Trimeton, which does seem to help. 3) Fatigue - she does still get tired, but finds that her energy is up & down. She does not feel that her allergy meds have any correlation to fatigue. She is starting to realize that if she just sits down for a short while in the afternoon, then she can resume whatever activity she had been doing, without any difficulty. 4) Heart murmur - she was relieved to hear that there was nothing serious on the ECHO. 5) Blood pressure - she was also pleased that her BP was better today. Review of Systems Review of Systems- Constitutional: + fatigue, no changes in weight. HEENT: no vision changes, or sinus congestion. Respiratory: no cough, SOB, or wheezing. Cardiac: no chest pain, palpitations or pedal edema. GI: +abdominal pain, no vomiting or change in bowel habits. : no dysuria. Neurologic: no headaches. Musculoskeletal: No joint pains. Physical Exam Vitals & Measurements T:36.7C HR:80(Monitored) RR:20 BP:128/62 SpO2:98% WT:52.4kg WT:52.400kg(Dosing) PHQ2 Data(Data Documented on:07/10/2023 13:04) Emotional health assessment NEGATIVE PE : Alert, in NAD. HEENT - PERRL. TM's - normal. Nares - clear. Oropharynx - normal. Neck - supple, without thyromegaly or lymphadenopathy. No carotid bruit. Lungs - clear, with good breath sounds bilaterally. Heart - RRR with II/ holosystolicmurmur at LUSB. No pedal edema. Abdomen - +BS, soft, NT without HSM or mass. Neuro - alert & oriented, speech & cognition normal. Skin - warm & dry. Psych - affect appropriate. Assessment/Plan 1.Fatigue STATUS : chronic, stable. DATA : hx & exam reviewed. GOAL : restore energy. PLAN : reviewed previous labs, which were essentially unrevealing. In addition, she did not feel that energy was any different after adjustment of thyroid dose, or after taking sedating anti-histamine. On extensive discussion with pt, it is apparent that her usual daily routine is significantlymore active than most other people in their 70's. She, herself, acknowledges "I have to accept that I'm getting old."Will continue observation. 2.Hypothyroidism Status : chronic, stable. Data : sx reviewed. Goal : maintain euthyroid state. Plan : lastTSH was therapeutic in 01/21. She feels that her energy level is good with current dose. 3.Gas bloat syndrome STATUS: Chronic, waxing & waning. DATA: hx & examreviewed. GOAL: Maintain GI stability. PLAN: would tend to doubt serious etiology, as she states that these sx are fleeting & have been present & unchanged for years. In addition, there has been no progression of sx & they are not debilitating in any way. She had seen GI in recent past, & EGD was without significant abnormality. Will continue to monitor. 4.ETD (eustachian tube dysfunction) STATUS: Chronic, improved. DATA: hx & examreviewed. Suspect that allergyis exacerbating ear sx. GOAL: control allergic sx. PLAN: suggested that she coulduse OTC nasal steroid spray. instead of current allergy regimen. However, she would prefer to continue her current meds. 5.Mild aortic regurgitation STATUS: new finding, stable. DATA: ECHOreviewed. GOAL: Maintain cardiovascular stability. PLAN: discussed that this requires no tx at present & may consider doing another ECHO in 1 yr to follow. Cont current monitoring. 6.Trace mitral valve regurgitation STATUS: new finding, stable. DATA: ECHOreviewed. GOAL: Maintain cardiovascular stability. PLAN: discussed that this requires no tx at present. 7.Heartburn STATUS: Chronic, controlled. DATA: hx & examreviewed. GOAL: relieve sx of acid reflux. PLAN: she has been able to wean off of all of her acid-reducing medications, with only infrequent flare-ups.Stay vigilant with diet & non-pharmacological measures. Return in 6 months. Time:Total time spent with this patient on day of evaluation including chart review, ordering, education and coordination of care elements: 37_ minutes Problem List/Past Medical History Ongoing Annual physical exam Body mass index [BMI] 21.0-21.9, adult Callus Chest pain Costochondritis Encounter for preoperative assessment ETD (eustachian tube dysfunction) Fatigue Gas bloat syndrome H/O small bowel obstruction Hammertoe, bilateral Heartburn Hypothyroidism Idiopathic postprandial hypoglycemia Intermittent lightheadedness Jaw pain Low back pain Low blood sugar Metatarsalgia of both feet Osteopenia Poor balance Seasonal allergies Seborrheic keratosis Shoulder pain Tinea unguium Tinnitus Trace mitral valve regurgitation Procedure/Surgical History Cataract surgery of left eye| Service Date: 4Plain X-ray of left shoulder| Service Date: 10/01/2022Upper GI (gastrointestinal) endoscopy| Service Date: 08/28/2022Ultrasound| Service Date: 08/07/2022X-ray tomography of lumbar spine| Service Date: 01/20/2019Bone density scan| Service Date: 10/11/2016Hysterectomy Medications ascorbic acid(Vitamin C) calcium citrate(Calcitrate), 1 tab, PO, Daily chlorpheniramine(Chlor-Trimeton), PRN fluticasone nasal(Flonase 50 mcg/inh nasal spray), 1 spray, each nostril, Daily levothyroxine(levothyroxine 75 mcg (0.075 mg) oral tablet), 1 tab, PO, Daily multivitamin(Vitamin D and K oral tablet) multivitamin [...] 89 Years Relationship: Father, Age: 87 Years Immunizations Vaccine Date Status pneumococcal 20-valent conjugate vaccine 02/15/2023 Recorded Comments : 2023-03-04: Historical information-source unspecified SARS-CoV-2 (COVID-19) mRNA-vacc - [id number] 01/10/2023 Recorded Comments : 2023-03-04: Historical information-source unspecified SARS-CoV-2 mRNA-1273 (6y+ bivalent) 02/08/2022 Recorded Comments : 2023-03-04: Historical information-source unspecified SARS-CoV-2 (COVID-19) mRNA-1273 vaccine 10/03/2021 Recorded Comments : 2023-03-04: Historical information-source unspecified SARS-CoV-2 (COVID-19) mRNA-1273 vaccine 03/17/2021 Recorded Comments : 2023-03-04: Historical information-source unspecified influenza virus vaccine, inactivated 01/10/2021 Given SARS-CoV-2 (COVID-19) mRNA BNT-162b2 vax 05/05/2020 Recorded influenza virus vaccine, inactivated 01/05/2020 Given tetanus/diphtheria/pertuss, acel (Tdap) 07/13/2019 Recorded tetanus/diphtheria/pertuss, acel (Tdap) 07/01/2019 Recorded zoster vaccine, inactivated 09/09/2018 Given zoster vaccine, inactivated 05/05/2018 Given pneumococcal 23-valent vaccine 09/10/2013 Recorded Comments : Route: Intramuscularly Rn Managed Care: [employer] zoster vaccine live 05/10/2011 Recorded tetanus/diphtheria/pertuss, acel (Tdap) 02/07/2010 Recorded Comments : 2023-03-04: Historical information-source unspecified Recommendations Health Maintenance Pending(in the next year) OverDue Adult Influenza Vaccine due09/28/22and every 1year Due Adult COVID-19 Vaccination due07/11/23Unknown Frequency Adult Social Determinants of Health Screening due07/11/23Unknown Frequency Colorectal Cancer Screening due07/11/23Unknown Frequency Medicare Annual Wellness Visit due07/11/23and every 1year Satisfied(in the past 1 year) Satisfied Body Mass Index on06/04/23.Satisfied by ELAN Gonzalez Paula Lipid Screening on01/17/23.Satisfied by Contributor_system, [employer] Electronic Signature on File Electronically Reviewed/Signed by: Loren Mendieta MD Author Signature Dt/Tm:07/11/2023 09:18 AM Blending Coordinator Family and Community [facility] [address], [address] [place] [address] [facility] Patient Care team information Care Team Personnel Name: DO Quinones Franklin J Position: Physician - Family Med Member Role: Lifetime Relationship Address: Address: [address] [place] [address] [place] Name: MD Gayatri, Loren Xavier Position: Physician - Family Med Member Role: Primary Care Provider Address: Address: [address] [place] [address] [address] [place] [address] [place] Name: MD Adwoa, Kt Position: Resident Member Role: Lifetime Relationship Address: Address: [address] [facility] [address] [place] [address] [place] Care Team Related Persons Name: DAYANARA GREGG Address: home [address] [phone]
--- NOTE | 2023-11-23 02:46 | CT Scan Report ---
Exam(s): CT ABDOMEN + PELVIS With Contrast IV Amt: 94 ml opti 320 EXAM: CT Abdomen and Pelvis With Intravenous Contrast CLINICAL HISTORY: Reason for exam: Abdominal pain - eval obstruction or other etiology. TECHNIQUE: Axial computed tomography images of the abdomen and pelvis with intravenous contrast. CTDI is 11.37 mGy and DLP is 493.94 mGy-cm. Automated exposure control was utilized for the study. A dose lowering technique was utilized adhering to the principles of ALARA. CONTRAST: Patient received 94 ml opti 320 of IV contrast COMPARISON: Ultrasound abdomen: 08/07/2022 FINDINGS: Diagnostic sensitivity of the exam is reduced by motion artifact. Lung bases: . No mass. No consolidation. No pleural effusion. Mild/moderately enlarged cardiac silhouette. ABDOMEN: Liver: Multiple small rounded hypodense lesions in the right lobe, statistically represent cysts. No solid mass. Gallbladder and bile ducts: Unremarkable. No calcified stones. Dilated intrahepatic bile ducts. Pancreas: Likely an atrophic pancreas. No pancreatic ductal dilation. Spleen: Unremarkable. No splenomegaly. Adrenals: Unremarkable. No mass. Kidneys and ureters: Unremarkable. No solid mass. Mild fullness of the left renal collecting system. No hydronephrosis. Stomach and bowel: Fluid-filled significantly distended and patulous stomach. There are multiple 3.7 cm dilated fluid/air filled small bowel loops are seen throughout the abdomen and pelvis with transition zone seen in the mid upper pelvis (series 2 image 57, series 300 image 28), consistent with high-grade small bowel obstruction. Moderately large amount of retained stool seen throughout the colon. PELVIS: Appendix: No acute findings in the region of the appendix. Bladder: Unremarkable. No mass. Reproductive: Prior partial hysterectomy ABDOMEN and PELVIS: Intraperitoneal space: Unremarkable. No free air. No significant fluid collection. Bones/joints: No acute fracture. No dislocation. Degenerative grade 1 L4 spondylolisthesis. L4-S1 levels moderate degenerative spondylitic changes. Soft tissues: Unremarkable. Vasculature: Unremarkable. No abdominal aortic aneurysm. Lymph nodes: Unremarkable. No enlarged lymph nodes. . IMPRESSION: A distended stomach. Multiple dilated small bowel loops with a transition zone in the mid upper pelvis, consistent with high-grade small bowel obstruction. Retained formed stool seen throughout the colon. Dilated intrahepatic bile ducts. . Electronically signed by: Celina Orlando MD, MIC 11/23/23 02:45 AM
[2023-11-23] MEDS: bisacodyL 10 MG SUPP PR STA (04:22)
--- NOTE | 2023-11-23 04:37 | History & Physical Report ---
Date of Service November 23, 2023 Assessment & Plan (1) Small bowel obstruction: (2) Hypothyroid: (3) Dehydration: Plan High-grade small bowel obstruction- Transition point in mid upper abdomen, with distended stomach. NG tube discussed, but patient would prefer to not have 1 now NPO except meds From the ED received the following: NSS 500 mL bolus, morphine sulfate 2 mg IV, and Zofran 4 mg IV NSS + KCl 20 mill equivalents at 100 mL/h Pantoprazole 40 mg IV daily Zofran 4 mg IV every 6 hours as needed Acetaminophen 1 g IV every 6 hours as needed for pain or fever Toradol 15 mg IV every 6 hours as needed for moderate pain Morphine sulfate 2 mg IV every 3 hours as needed for severe pain Dulcolax suppository now, and daily as needed, as CT scan notes large stool burden Consult to general surgery Hypothyroidism- Continue levothyroxine 75 mcg daily History of Present Illness Chief Complaint: The patient presents to the emergency department with acute onset of severe right lower quadrant and epigastric pain that began earlier in the day today, accompanied by nausea without vomiting Primary Care Provider: Loren Mendieta MD The patient is a 78-year-old female with a past medical history including hysterectomy about 20 years ago, then first bowel obstruction 3 years after that, and the second bowel obstruction 10 years after that. She has not had any symptoms since that time until today. Her pain has usually been in the right lower quadrant. She reports upon awakening this point she ate breakfast without a problem, she was then going about her day, and that shortly after eating lunch she developed severe epigastric upper abdominal pain, which is worse than she is ever had before, and is in a different location, as usually it is in the right lower quadrant. She did take Gaviscon at least 3 times today, without significant improvement. She also tried eating yogurt. Her last BM was this morning. CT scan of the abdomen and pelvis in the emergency department reveals a high-grade small bowel obstruction, with large fecal load throughout the colon. She denies any fevers or chills. As noted she has had nausea but no vomiting Allergies Allergy/AdvReac Type Severity Reaction Status Date / Time aspartame Allergy Intermediate blisters Verified 06/25/23 09:18 in mouth sucralose Allergy Intermediate blisters Verified 06/25/23 09:18 in mouth metronidazole [From Flagyl] Allergy Mild lightheaded Verified 06/25/23 09:18 /nausea iron AdvReac Mild gas Verified 06/25/23 09:18 lactose AdvReac Mild Gastrointestinal Verified 06/25/23 09:18 Upset Home Medications Medication Instructions Recorded Confirmed Type chlorpheniramine maleate 12 mg 12 mg PO Q12H PRN Allergy Symptoms 03/14/22 06/18/23 History tablet,extended release levothyroxine 75 mcg tablet 75 mcg PO QAM 03/14/22 06/18/23 History ascorbic acid (vitamin C) 1,000 mg 1 g PO QDL 08/16/22 06/18/23 History tablet (Vitamin C) calcium carbonate (Calcium 600) 600 mg PO QDL 08/16/22 06/18/23 History multivitamin 1 tab PO QDL 08/16/22 06/18/23 History pseudoephedrine HCl 60 mg tablet 60 mg PO Q6H PRN allergy symptoms 08/16/22 06/18/23 History Past Med/Surg History Problem List (Updated 11/23/23 @ 04:38 by Ammon Cazares MD) Dehydration Small bowel obstruction Encounter for pre-operative examination Epigastric abdominal pain Hypothyroid Medical History Hx of gastroesophageal reflux (GERD) improved Low glucose level per pt she has intermittent issues where her blood sugar levels drop and she takes glucose tablets History of cervical cancer 35yrs ago--had sx Temporomandibular joint disorder does exercises for this and has improved this Hypothyroid Surgical History Hx of cataract extraction left History of esophagogastroduodenoscopy (EGD) History of colonoscopy History of tooth extraction History of wisdom tooth extraction H/O: hysterectomy REBECCA BSO Family History Other No family history of adverse response to anesthesia Social History Smoking Status: Never smoker Second Hand Exposure: No; Do You Dip or Chew Tobacco: No; Hx Alcohol Use: No Hx Substance Use: No Preferred Language: Greenlandic Communication Ability: Effective [employer] Required: No Beliefs That Will Affect Care: None Current Living Situation: Alone Feels Safe at Home: Yes Assistive Devices: Glasses Review of Systems Review of Systems: The patient denies chest pain, palpitations, shortness of breath, dyspnea on exertion, cough, lower extremity swelling, sore throat, fevers, chills, sweats, vomiting, blood in urine or stool, dysuria, urinary frequency or urgency, lightheadedness, dizziness, headache, memory loss, loss of consciousness, rash, abnormal bruising or bleeding, imbalance, focal or generalized weakness, numbness or tingling in arms or legs, generalized arthralgias or myalgias, back or neck pain, or night sweats. The review of systems is otherwise negative other than for that already noted above, and at least 10 systems have been reviewed. Physical Exam Physical Exam: The patient is awake, alert and oriented 3, well developed and well nourished, normocephalic and atraumatic, lying in bed and in no acute distress. HEENT--PERRL, EOMI, mucous membranes and oropharynx dry. Neck--supple. No JVD. No bruits. Thyroid normal, trachea midline, no adenopathy. Heart--normal S1 and S2. No murmurs, rubs or gallops. Lungs--clear bilaterally, no respiratory distress, no accessory muscle use. Abdomen--decreased bowel sounds throughout. Mild epigastric tenderness and right mid quadrant pain palpation. Nondistended Extremities--no cyanosis or clubbing. No edema. Dermatologic--normal skin turgor, normal color, no abnormal lymph nodes, no rash. Neurologic--cranial nerves II through XII grossly intact. Rheumatologic--normal range of motion. Psychiatric--normal affect. Results & Data Results & Data Vital Signs (Past 12 Hours) Vital Signs Temp Pulse Resp BP Pulse Ox O2 Del Method 11/23/23 03:39 93 H 11/23/23 01:33 79 14 155/79 H 96 Room Air 11/23/23 00:00 74 14 166/79 H 99 11/22/23 23:36 75 11/22/23 20:34 36 C L 81 16 165/75 H 100 Room Air Laboratory Results Laboratory Results WBC 10.03 K/ul (4.8-10.8) 11/22/23 21:39 RBC 4.82 M/uL (4.20-5.40) 11/22/23 21:39 Hgb 14.5 g/dl (12.0-16.0) 11/22/23 21:39 Hct 43.1 % (37.0-47.0) 11/22/23 21:39 MCV 89.4 fL (80.0-100.0) 11/22/23 21:39 MCH 30.1 pg (25.0-34.0) 11/22/23 21:39 MCHC 33.6 g/dL (32.0-36.0) 11/22/23 21:39 RDW Std Deviation 41.1 fL (36.4-46.3) 11/22/23 21:39 RDW Coeff of [place]ilson 12.5 % (11.5-14.5) 11/22/23 21:39 Plt Count 301 K/uL (130-400) 11/22/23 21:39 MPV 9.4 fL (9.4-12.4) 11/22/23 21:39 Immature Gran % (Auto) 0.3 % 11/22/23 21:39 Neut % (Auto) 78.2 % 11/22/23 21:39 Lymph % (Auto) 14.4 % 11/22/23 21:39 [place] % (Auto) 6.2 % 11/22/23 21:39 Eos % (Auto) 0.7 % 11/22/23 21:39 Baso % (Auto) 0.2 % 11/22/23 21:39 Neut # (Auto) 7.85 K/uL (1.40-6.50) H 11/22/23 21:39 Lymph # (Auto) 1.44 K/uL (1.20-3.40) 11/22/23 21:39 [place] # (Auto) 0.62 K/uL (0.11-0.59) H 11/22/23 21:39 Eos # (Auto) 0.07 K/uL (0.00-0.50) 11/22/23 21:39 Baso # (Auto) 0.02 K/uL (0.00-0.20) 11/22/23 21:39 Immature Gran # (Auto) 0.03 K/uL (0.01-0.20) 11/22/23 21:39 Sodium 135 mmol/L (136-145) L 11/22/23 21:39 Potassium 4.1 mmol/L (3.5-5.1) 11/22/23 21:39 Chloride 95 mmol/L (98-107) L 11/22/23 21:39 Carbon Dioxide 30 mmol/L (21-32) 11/22/23 21:39 Anion Gap 10 (3-11) 11/22/23 21:39 BUN 24 mg/dl (6-23) H 11/22/23 21:39 Creatinine 0.78 mg/dl (0.6-1.2) 11/22/23 21:39 Est Cr Clr Drug Dosing 45.2 ml/min 11/22/23 21:39 Est GFR ( Amer) 85.6 ml/min 11/22/23 21:39 Est GFR (Non-Af Amer) 73.8 ml/min 11/22/23 21:39 BUN/Creatinine Ratio 30.8 (10-20) H 11/22/23 21:39 Glucose 109 mg/dl (70-99(Fasting)) H 11/22/23 21:39 POC Glucose 125 mg/dl (70-99) H 11/23/23 01:38 Calcium 10.9 mg/dl (8.6-10.3) H 11/22/23 21:39 Total Bilirubin 0.5 mg/dl (0.2-1.0) 11/22/23 21:39 AST 30 U/L (13-39) 11/22/23 21:39 ALT 20 U/L (7-52) 11/22/23 21:39 Alkaline Phosphatase 75 U/L (34-104) 11/22/23 21:39 Troponin I High Sens 7.6 pg/ml (0-14) 11/22/23 21:39 Total Protein 8.2 gm/dl (6.0-8.3) 11/22/23 21:39 Albumin 5.0 gm/dl (3.4-5.0) 11/22/23 21:39 Globulin 3.2 gm/dl (2.5-4.0) 11/22/23 21:39 Albumin/Globulin Ratio 1.6 (0.9-2) 11/22/23 21:39 Lipase 17 U/L (11-82) 11/22/23 21:39 Urine Color Yellow 11/22/23 Unknown Urine Appearance Turbid (Clear) A 11/22/23 Unknown Urine pH >= 9.0 (4.5-7.5) H 11/22/23 Unknown Ur Specific [place] 1.014 (1.000-1.030) 11/22/23 Unknown Urine Protein Negative (Negative) 11/22/23 Unknown Urine Glucose (UA) Negative (Negative) 11/22/23 Unknown Urine Ketones Negative (Negative) 11/22/23 Unknown Urine Blood Negative (Negative) 11/22/23 Unknown Urine Nitrite Negative (Negative) 11/22/23 Unknown Urine Bilirubin Negative (Negative) 11/22/23 Unknown Urine Urobilinogen Negative (Negative) 11/22/23 Unknown Ur Leukocyte Esterase Negative (Negative) 11/22/23 Unknown Urine WBC (Auto) 0-5 /hpf (0-5) 11/22/23 Unknown Urine RBC (Auto) 11-20 /hpf (0-2) H 11/22/23 Unknown U Hyaline Cast (Auto) 0-2 /lpf (0-2) 11/22/23 Unknown U Epithel Cells (Auto) 0-2 /hpf (0-2) 11/22/23 Unknown Urine Bacteria (Auto) None Seen (None Seen) 11/22/23 Unknown Impressions Abdomen/Pelvis CT 11/22/23 23:05 Exam(s): CT ABDOMEN + PELVIS With Contrast IV Amt: 94 ml opti 320 EXAM: CT Abdomen and Pelvis With Intravenous Contrast CLINICAL HISTORY: Reason for exam: Abdominal pain - eval obstruction or other etiology. TECHNIQUE: Axial computed tomography images of the abdomen and pelvis with intravenous contrast. CTDI is 11.37 mGy and DLP is 493.94 mGy-cm. Automated exposure control was utilized for the study. A dose lowering technique was utilized adhering to the principles of ALARA. CONTRAST: Patient received 94 ml opti 320 of IV contrast COMPARISON: Ultrasound abdomen: 08/07/2022 FINDINGS: Diagnostic sensitivity of the exam is reduced by motion artifact. Lung bases: . No mass. No consolidation. No pleural effusion. Mild/moderately enlarged cardiac silhouette. ABDOMEN: Liver: Multiple small rounded hypodense lesions in the right lobe, statistically represent cysts. No solid mass. Gallbladder and bile ducts: Unremarkable. No calcified stones. Dilated intrahepatic bile ducts. Pancreas: Likely an atrophic pancreas. No pancreatic ductal dilation. Spleen: Unremarkable. No splenomegaly. Adrenals: Unremarkable. No mass. Kidneys and ureters: Unremarkable. No solid mass. Mild fullness of the left renal collecting system. No hydronephrosis. Stomach and bowel: Fluid-filled significantly distended and patulous stomach. There are multiple 3.7 cm dilated fluid/air filled small bowel loops are seen throughout the abdomen and pelvis with transition zone seen in the mid upper pelvis (series 2 image 57, series 300 image 28), consistent with high-grade small bowel obstruction. Moderately large amount of retained stool seen throughout the colon. PELVIS: Appendix: No acute findings in the region of the appendix. Bladder: Unremarkable. No mass. Reproductive: Prior partial hysterectomy ABDOMEN and PELVIS: Intraperitoneal space: Unremarkable. No free air. No significant fluid collection. Bones/joints: No acute fracture. No dislocation. Degenerative grade 1 L4 spondylolisthesis. L4-S1 levels moderate degenerative spondylitic changes. Soft tissues: Unremarkable. Vasculature: Unremarkable. No abdominal aortic aneurysm. Lymph nodes: Unremarkable. No enlarged lymph nodes. . IMPRESSION: A distended stomach. Multiple dilated small bowel loops with a transition zone in the mid upper pelvis, consistent with high-grade small bowel obstruction. Retained formed stool seen throughout the colon. Dilated intrahepatic bile ducts. . Electronically signed by: Celina Orlando MD, MIC 11/23/23 02:45 AM Code Status & VTE Plan Code Status Full code VTE Prophylaxis Plan VTE Prophylaxis will be ordered: Yes PG Care Time/CCT Total # of Minutes Spent Total Time Spent with Patient: Total time spent is greater than 50% in coordination of care (as documented) at patient's floor/unit and/or counseling patient: Coding Level of Care Code 21958 INT INP/OBS CARE 3MIN Diagnoses Small bowel obstruction K56.609 Hypothyroid E03.9 Dehydration E86.0
[2023-11-23] MEDS ORDERED: bisacodyL 10 MG SUPP PR PRN (05:49)
[2023-11-23] MEDS ORDERED: ACETAMINOPHEN 1,000 MG/100 ML VIAL IV PRN (05:49)
[2023-11-23] MEDS ORDERED: MoRPHine SULFATE 2 MG/ML CARP IV PRN (05:49)
[2023-11-23] MEDS ORDERED: KETOROLAC TROMETHAMINE 15 MG/ML VIAL IV PRN (05:49)
[2023-11-23] MEDS ORDERED: ACETAMINOPHEN 10MG/ML Custom 700 MG in EMPTY BAG 0 ML IV PRN (06:00)
[2023-11-23] MEDS: LEVOTHYROXINE SODIUM 75 MCG TABLET PO SCH (06:13)
[2023-11-23] MEDS: NSS + 20MEQ KCL 20 MEQ/1,000 ML BAG IV SCH (06:17)
--- NOTE | 2023-11-23 10:37 | XRay Report ---
KUB CLINICAL HISTORY: Generalized abdominal pain. FINDINGS: 2 AP supine abdominal radiographs are compared to study dated 07/28/2022. Surgical clips are seen in the pelvis bilaterally. There are distended and gas-filled loops of small bowel which measur e up to 3.6 cm. Stool is seen within the colon. No evidence of intraperitoneal free air is identified on these supine images. There are no abnormal abdominal calcifications. The skeletal structures are osteopenic and appear intact. There is moderate lumbosacral spondylosis. The lung bases are clear as imaged. IMPRESSION: Distended and gas-filled loops of small bowel are consistent with obstruction. Clinical c orrelation will be required. Electronically signed by: Bony Aguila M.D. 11/23/2023 10:35 AM
--- NOTE | 2023-11-23 10:55 | Hospitalist Progress Note ---
Date of Service November 23, 2023 Assessment & Plan (1) Small bowel obstruction: Plan: High-Grade Small Bowel Obstruction - Surgery consulted. No surgical intervention needed at this time. NPO - per surgery no sips and chips at this time Can consider NG tube, but per surgery can hold for now. PRN morphine, tylenol, toradol and zofran. Will order one time dose of morphine now for patient. Pantoprazole 40mg IV daily NSS + 20 meq K @ 100ml/hr Dulcolax suppository daily as needed. BMP tomorrow. (2) Hypothyroid: Plan: Continue home levothryroxine 75 mcg (3) Dehydration: Plan: NSS + 20 meq K @ 100mL/hr (4) Difficulty sleeping: Plan: Will order 0.5mg Ativan at bedtime PRN for sleep. Discussed the side effects of the medication with the patient. Admission and Anticipated Discharge Date Admission Date: November 23, 2023 Supervising Physician Co-Signing Physician Notes I personally examined the patient and verified all craig points of history and exam, discussed case, and agree with decision making with A Fly SIFUENTES pain coming back a little bit again. Has not had pain medicine since last evening. Vitals noted, in general she is awake and alert pleasant no distress. HEENT normocephalic atraumatic mucous membranes moist. Breathing unlabored no accessory muscle use good effort. Skin without rashes pallor or icterus. Neuro without focal deficits. Small bowel obstructionalmost certainly adhesional. Surgery consulted given high-grade findings on CT scanbut fortunately no surgical indications at this time. Ongoing conservative/supportive care. Pain control, antiemetics, IV fluids. Continue to follow. Anticipate spontaneous resolution. Otherwise as above. DVT prophylaxiscurrently ambulation, although if her hospital stay were to become prolonged or her pain were to make her more bedbound, would need to initiate pharmacologic. Kemal Barba is a pleasant 78 year old female resting in bed. She presented to the ER yesterday 11/22/2023 with complaints of abdominal pain, early satiety, and nausea. She has a hx of SBO approx 10 years ago which did not require surgical intervention. CT abdomen and pelvis showed high-grade small bowel obstruction. Surgery was consulted. Today, she currently denies any n/v. She reports that she got a suppository at approx 0600, but has had no bowel movement. Reports no flatus, but that her stomach is softer than it was yesterday and pain is much improved. At revisit at 1730 - pt now complaining of RLQ abdominal pain and requesting pain medication. Last dose of pain medication was in the ER last evening. Pt reports very little sleep last night and throughout the day. She is requesting something for sleep. Reports melatonin does not work for her. Review of Systems 2 Review of Systems: The patient denies chest pain, palpitations, shortness of breath, dyspnea on exertion, cough, lower extremity swelling, sore throat, fevers, chills, sweats, vomiting, blood in urine or stool, dysuria, urinary frequency or urgency, lightheadedness, dizziness, headache, memory loss, loss of consciousness, rash, abnormal bruising or bleeding, focal or generalized weakness, generalized arthralgias or myalgias, back or neck pain, or night sweats. The review of systems is otherwise negative other than for that already noted above, and at least 10 systems have been reviewed. Physical Exam 2 Physical Exam: The patient is awake, alert and oriented 3, well developed and well nourished, normocephalic and atraumatic, lying in bed and in no acute distress. HEENT--PERRL, EOMI, mucous membranes moist. Neck--supple. No JVD, trachea midline Heart-- Regual rate and rhythm. No murmurs, rubs or gallops. Lungs--clear bilaterally, no respiratory distress, no accessory muscle use. Abdomen-- + bowel sounds throughout. No epigastric tenderness and mild right quadrant pain to palpation. Nondistended. No guarding. Abdomen soft. Extremities--no cyanosis or clubbing. No edema. Dermatologic--normal color, no rash. Neurologic--cranial nerves II through XII grossly intact. Rheumatologic--normal range of motion. Psychiatric--normal affect. Results & Data Results & Data Vital Signs (Past 12 Hours) Vital Signs Temp Pulse Pulse Resp BP BP Pulse Ox 11/23/23 05:58 36.7 C 76 16 151/76 H 98 11/23/23 05:55 36.7 C 16 151/76 H 98 11/23/23 05:48 73 18 141/72 H 98 11/23/23 04:59 80 18 140/67 97 08/24/24 04:30 78 16 144/79 H 98 11/23/23 03:39 93 H 11/23/23 02:33 68 18 142/74 H 97 11/23/23 02:00 74 14 139/73 97 11/23/23 01:33 79 14 155/79 H 96 11/23/23 00:00 74 14 166/79 H 99 11/22/23 23:36 75 O2 Del Method 11/23/23 05:58 Room Air 11/23/23 05:55 Room Air 11/23/23 05:48 Room Air 11/23/23 04:59 Room Air 11/23/23 04:30 Room Air 11/23/23 03:39 11/23/23 02:33 Room Air 11/23/23 02:00 Room Air 11/23/23 01:33 Room Air 11/23/23 00:00 11/22/23 23:36 Laboratory Results 11/22/23 21:39 11/22/23 21:39 Diagnostic Findings KUB X-Ray 11/22/23 20:37 KUB CLINICAL HISTORY: Generalized abdominal pain. FINDINGS: 2 AP supine abdominal radiographs are compared to study dated 07/28/2022. Surgical clips are seen in the pelvis bilaterally. There are distended and gas-filled loops of small bowel which measure up to 3.6 cm. Stool is seen within the colon. No evidence of intraperitoneal free air is identified on these supine images. There are no abnormal abdominal calcifications. The skeletal structures are osteopenic and appear intact. There is moderate lumbosacral spondylosis. The lung bases are clear as imaged. IMPRESSION: Distended and gas-filled loops of small bowel are consistent with obstruction. Clinical correlation will be required. Electronically signed by: Bony Aguila M.D. 11/23/2023 10:35 AM Abdomen/Pelvis CT 11/22/23 23:05 Exam(s): CT ABDOMEN + PELVIS With Contrast IV Amt: 94 ml opti 320 EXAM: CT Abdomen and Pelvis With Intravenous Contrast CLINICAL HISTORY: Reason for exam: Abdominal pain - eval obstruction or other etiology. TECHNIQUE: Axial computed tomography images of the abdomen and pelvis with intravenous contrast. CTDI is 11.37 mGy and DLP is 493.94 mGy-cm. Automated exposure control was utilized for the study. A dose lowering technique was utilized adhering to the principles of ALARA. CONTRAST: Patient received 94 ml opti 320 of IV contrast COMPARISON: Ultrasound abdomen: 08/07/2022 FINDINGS: Diagnostic sensitivity of the exam is reduced by motion artifact. Lung bases: . No mass. No consolidation. No pleural effusion. Mild/moderately enlarged cardiac silhouette. ABDOMEN: Liver: Multiple small rounded hypodense lesions in the right lobe, statistically represent cysts. No solid mass. Gallbladder and bile ducts: Unremarkable. No calcified stones. Dilated intrahepatic bile ducts. Pancreas: Likely an atrophic pancreas. No pancreatic ductal dilation. Spleen: Unremarkable. No splenomegaly. Adrenals: Unremarkable. No mass. Kidneys and ureters: Unremarkable. No solid mass. Mild fullness of the left renal collecting system. No hydronephrosis. Stomach and bowel: Fluid-filled significantly distended and patulous stomach. There are multiple 3.7 cm dilated fluid/air filled small bowel loops are seen throughout the abdomen and pelvis with transition zone seen in the mid upper pelvis (series 2 image 57, series 300 image 28), consistent with high-grade small bowel obstruction. Moderately large amount of retained stool seen throughout the colon. PELVIS: Appendix: No acute findings in the region of the appendix. Bladder: Unremarkable. No mass. Reproductive: Prior partial hysterectomy ABDOMEN and PELVIS: Intraperitoneal space: Unremarkable. No free air. No significant fluid collection. Bones/joints: No acute fracture. No dislocation. Degenerative grade 1 L4 spondylolisthesis. L4-S1 levels moderate degenerative spondylitic changes. Soft tissues: Unremarkable. Vasculature: Unremarkable. No abdominal aortic aneurysm. Lymph nodes: Unremarkable. No enlarged lymph nodes. . IMPRESSION: A distended stomach. Multiple dilated small bowel loops with a transition zone in the mid upper pelvis, consistent with high-grade small bowel obstruction. Retained formed stool seen throughout the colon. Dilated intrahepatic bile ducts. . Electronically signed by: Celina Orlando MD, JESSICAR 11/23/23 02:45 AM PG Care Time/CCT Total # of Minutes Spent Total Time Spent with Patient: Total time spent is greater than 50% in coordination of care (as documented) at patient's floor/unit and/or counseling patient: Coding [place] [address] SUB INP/OBS CARE 2/35MIN Patient Type Established Medical Decision Making Moderate Complexity Diagnoses Small bowel obstruction K56.609 Hypothyroid E03.9 Dehydration E86.0 Difficulty sleeping G47.9
[2023-11-23] MEDS: PANTOprazole 40 MG in SYRINGE 0 ML IV SCH (11:42)
--- NOTE | 2023-11-23 13:58 | Surgery Consultation ---
<Statement entered by Tanya Hernandez DO - 11/23/23 16:28> I have seen and examined this patient with the surgical PA, I agree with this plan Date of Consultation November 23, 2023 Assessment & Plan (1) Small bowel obstruction: Patient seen and examined with Dr. Hernandez. Recent imaging and labwork reviewed. Patient admitted to hospitalist team. No indication for surgical intervention at this time. Will continue conservative measures at this time- include NPO (discussed with her that she should hold off on sip and chips). Can hold off on NGT for now, but can order if needed. Ambulation was encouraged. General Surgery will continue to follow closely. History of Present Illness Reason for Consultation: High grade small bowel obstruction Attending Physician: Allen Fernandez DO History of Present Illness Freda is a 78-year-old with history of recurrent small bowel obstruction, at [facility] 2-3 other episodes that resolved with conservative measures. She presented to [facility] after pain began yesterday around noon. She states that she did initially have some nausea, but notes that that has resolved. Her most recent bowel movement was yesterday morning and it was fairly normal for her, maybe a bit smaller than usual. Her most recent colonoscopy was a few months ago and was completed as outpatient with [facility]. She also reports that she had an upper GI due to continued acid reflux symptoms. CT of the abdomen and pelvis was obtained yesterday that shows a high-grade small bowel obstruction with significant stool burden. She was given a suppository several hours ago and Freda comments that she is starting to have an increase in gas pain. She has been been ambulating throughout the hallway, which does seem to help. WBC on admission 10.03. Past surgical history significant for hysterectomy. Allergies Allergy/AdvReac Type Severity Reaction Status Date / Time aspartame Allergy Intermediate blisters Verified 06/25/23 09:18 in mouth sucralose Allergy Intermediate blisters Verified 06/25/23 09:18 in mouth metronidazole [From Flagyl] Allergy Mild lightheaded Verified 06/25/23 09:18 /nausea iron AdvReac Mild gas Verified 06/25/23 09:18 lactose AdvReac Mild Gastrointestinal Verified 06/25/23 09:18 Upset Home Medications Medication Instructions Recorded Confirmed Type chlorpheniramine maleate 12 mg 12 mg PO Q12H PRN Allergy Symptoms 03/14/22 11/23/23 History tablet,extended release levothyroxine 75 mcg tablet 75 mcg PO QAM 03/14/22 11/23/23 History ascorbic acid (vitamin C) 1,000 mg 1 g PO QDL 08/16/22 11/23/23 History tablet (Vitamin C) calcium carbonate (Calcium 600) 600 mg PO QDL 08/16/22 11/23/23 History multivitamin 1 tab PO QDL 08/16/22 11/23/23 History pseudoephedrine HCl 60 mg tablet 60 mg PO Q6H PRN allergy symptoms 08/16/22 11/23/23 History Patient History Medical History Hx of gastroesophageal reflux (GERD) improved Low glucose level per pt she has intermittent issues where her blood sugar levels drop and she takes glucose tablets History of cervical cancer 35yrs ago--had sx Temporomandibular joint disorder does exercises for this and has improved this Hypothyroid Surgical History Hx of cataract extraction left History of esophagogastroduodenoscopy (EGD) History of colonoscopy History of tooth extraction History of wisdom tooth extraction H/O: hysterectomy REBECCA BSO Family History Other No family history of adverse response to anesthesia Social History Smoking Status: Never smoker Second Hand Exposure: No; Do You Dip or Chew Tobacco: No; Hx Alcohol Use: Yes Alcohol type: wine Hx Substance Use: No Preferred Language: Slovak Communication Ability: Effective Content Assistant Required: No Beliefs That Will Affect Care: None Current Living Situation: Alone Feels Safe at Home: Yes Assistive Devices: Glasses Review of Systems Constitutional: as per Subjective / HPI; no fever and no chills Gastrointestinal: + abdominal pain; no nausea and no vomit ing Physical Exam Constitutional: WD/WN, vitals as above Respiratory: normal respiratory effort; no respiratory distress and no labored breathing Gastrointestinal (Abdomen): Percussion/Palpation: + abdomen tender (TTP in epigastric region and RUQ) and abdomen soft; no guarding and abdomen not rigid Results & Data Vital Signs (Past 12 Hours) Vital Signs Temp Pulse Pulse Resp BP BP Pulse Ox 11/23/23 05:58 36.7 C 76 16 151/76 H 98 11/23/23 05:55 36.7 C 16 151/76 H 98 11/23/23 05:48 73 18 141/72 H 98 11/23/23 04:59 80 18 140/67 97 11/23/23 04:30 78 16 144/79 H 98 11/23/23 03:39 93 H 11/23/23 02:33 68 18 142/74 H 97 11/23/23 02:00 74 14 139/73 97 O2 Del Method 11/23/23 05:58 Room Air 11/23/23 05:55 Room Air 11/23/23 05:48 Room Air 11/23/23 04:59 Room Air 11/23/23 04:30 Room Air 11/23/23 03:39 11/23/23 02:33 Room Air 11/23/23 02:00 Room Air PG Care Time/CCT Total # of Minutes Spent Total Time Spent with Patient: Total time spent is greater than 50% in coordination of care (as documented) at patient's floor/unit and/or counseling patient: Coding Level of Care Code 01141 INT INP/OBS CARE 2/55MIN Diagnoses Small bowel obstruction K56.609
[2023-11-23] MEDS ORDERED: LORazepam 0.5 MG in SYRINGE 0.25 ML IV PRN (17:47)
[2023-11-23] MEDS: ONDANSETRON INJ 2 MG/ML 2 ML VIAL IV PRN (18:07)
[2023-11-23] MEDS: MoRPHine SULFATE 2 MG/ML CARP IV STA (18:07)
--- NOTE | 2023-11-23 18:44 | Billing Data ---
Date of Service November 23, 2023 Coding Level of Care Code 41964 SUB INP/OBS CARE
[2023-11-24 06:38] LABS: BUN Creatinine Ratio 25.4 (10-20); Calcium 8.5 mg/dl (8.6-10.3); Creatinine Clr Calc Pharmacy 49.7 ml/min; Est GFR (African American) 95.9 ml/min; Est GFR (Non-African American) 82.7 ml/min; Potassium 4.5 mmol/L (3.5-5.1)
--- NOTE | 2023-11-24 09:20 | Hospitalist Progress Note ---
Date of Service November 24, 2023 Assessment & Plan (1) Small bowel obstruction: Plan: High-Grade Small Bowel Obstruction - Surgery consulted. No surgical intervention needed at this time. Sips and chips and advance to clear liquid if tolerated. If diet can be advanced, she requested lactose free and low sugar diet. Can consider NG tube, but per surgery can hold for now. PRN morphine, tylenol, toradol and zofran. Pantoprazole 40mg IV daily NSS + 20 meq K @ 100ml/hr. Dulcolax suppository daily as needed. BMP tomorrow. (2) Hypothyroid: Plan: Continue home levothryroxine 75 mcg (3) Dehydration: Plan: NSS + 20 meq K @ 100mL/hr. (4) Difficulty sleeping: Plan: Will order 0.5mg Ativan at bedtime PRN for sleep. Discussed the side effects of the medication with the patient. (5) Hypoglycemia: Plan: BS 66 this AM. She took two oral glucose tabs. Low risk - not diabetic and not on any diabetes medications. Will monitor q8 hours since NPO. Admission and Anticipated Discharge Date Admission Date: November 23, 2023 Supervising Physician Co-Signing Physician Notes I personally examined the patient and verified all craig points of history and exam, discussed case, and agree with decision making with A Fly SIFUENTES feeling better less pain basically no nausea. Vitals noted, in general she is awake and alert pleasant no distress. HEENT normocephalic atraumatic mucous membranes moist. Breathing unlabored no accessory muscle use good effort. Skin without rashes pallor or icterus. Neuro without focal deficits. abd soft mild distention mild diffuse tenderness no guarding or rebound Small bowel obstructionalmost certainly adhesional. Surgery consulted given high-grade findings on CT scanbut fortunately no surgical indications at this time. improving. slowly advance diet. DVT prophylaxiscurrently ambulation, although if her hospital stay were to become prolonged or her pain were to make her more bedbound, would need to initiate pharmacologic. that said she is quite ambulatory Subjective Freda is a pleasant 78 year old female resting in bed. She presented to the ER 11/22/2023 with complaints of abdominal pain, early satiety, and nausea. She has a hx of SBO approx 10 years ago which did not require surgical intervention. CT abdomen and pelvis showed high-grade small bowel obstruction. Surgery was consulted, no surgical intervention needed at this time - surgery following. Today, she currently denies any n/v. Reports no bowel movement since yesterday, but now reports flatus. Reports that stomach is soft, improved. She did have a dose of morphine yesterday but reports she did not tolerate well - made her dizzy and gave her a headache but it did take the pain away. She reports 1.5/10 in RLQ at this time, dull, achy. Surgery did see her - okay to do sips and chips and if she tolerates that can advance to clear liquid diet. She reports that she did sleep last night, did not require a dose of ativan. Glucose this AM 66 with labwork - nurse reports patient was asymptomatic at the time, but the overnight nurse allowed her to take 2 of her own glucose tablets. Recheck was 102. Review of Systems Review of Systems: The patient denies chest pain, palpitations, shortness of breath, dyspnea on exertion, cough, lower extremity swelling, sore throat, fevers, chills, sweats, vomiting, blood in urine or stool, dysuria, urinary frequency or urgency, lightheadedness, dizziness, headache, memory loss, loss of consciousness, rash, abnormal bruising or bleeding, focal or generalized weakness, generalized arthralgias or myalgias, back or neck pain, or night sweats. The review of systems is otherwise negative other than for that already noted above, and at least 10 systems have been reviewed. Physical Exam Physical Exam: The patient is awake, alert and oriented 3, well developed and well nourished, normocephalic and atraumatic, lying in bed and in no acute distress. HEENT--PERRL, EOMI, mucous membranes moist. Neck--supple. No JVD, trachea midline Heart-- Regual rate and rhythm. No murmurs, rubs or gallops. Lungs--clear bilaterally, no respiratory distress, no accessory muscle use. Abdomen-- + bowel sounds throughout. No epigastric tenderness and mild right quadrant pain to palpation, no rebound tenderness. Nondistended. No guarding. Abdomen soft. Extremities--no cyanosis or clubbing. No edema. Dermatologic--normal color, no rash. Neurologic--cranial nerves II through XII grossly intact. Rheumatologic--normal range of motion. Psychiatric--normal affect. Results & Data Results & Data Vital Signs (Past 12 Hours) Vital Signs Temp Pulse Resp BP Pulse Ox O2 Del Method 11/24/23 09:06 36.5 C 58 L 18 122/58 L 97 Room Air 11/23/23 21:14 36.9 C 72 16 127/73 97 Room Air Laboratory Results 11/24/23 11/24/23 Range/Units 07:30 05:28 Sodium 139 (136-145) mmol/L Potassium 4.5 (3.5-5.1) mmol/L Chloride 108 H (98-107) mmol/L Carbon Dioxide 26 (21-32) mmol/L Anion Gap 5 (3-11) BUN 18 (6-23) mg/dl Creatinine 0.71 (0.6-1.2) mg/dl Est Cr Clr Drug Dosing 49.7 ml/min Est GFR ( Amer) 95.9 ml/min Est GFR (Non-Af Amer) 82.7 ml/min BUN/Creatinine Ratio 25.4 H (10-20) Glucose 66 L (70-99(Fasting)) mg/dl POC Glucose 102 H (70-99) mg/dl Calcium 8.5 L D (8.6-10.3) mg/dl PG Care Time/CCT Total # of Minutes Spent Total Time Spent with Patient: Total time spent is greater than 50% in coordination of care (as documented) at patient's floor/unit and/or counseling patient: C[place] [address] SUB INP/OBS CARE 2/35MIN Patient Type Established Medical Decision Making Moderate Complexity Diagnoses Small bowel obstruction K56.609 Hypothyroid E03.9 Dehydration E86.0 Difficulty sleeping G47.9 Hypoglycemia E16.2
--- NOTE | 2023-11-24 10:00 | Surgery Progress Note ---
Date of Service November 24, 2023 Assessment & Plan (1) Small bowel obstruction: Plan: HD 2 with SBO, pain symptoms resolved and patient has started passing flatus yesterday. Sips and chips had initially been discontinued yesterday as she reported belching as well as increased gaseousness at the RLQ. She has remained afebrile with stable VS. She may resume having ice chips and sips today for now. If she does well with this and continues to pass flatus throughout the day today, she may be initiated on clear liquids and the patient has several dietary modifications that will need to be added to that as per medicine. Continue with ambulation Surgery will follow along Admission and Anticipated Discharge Date Admission Date: November 23, 2023 Subjective I have seen and examined this patient this am. She states she feels good. The gassy pains she reported yesterday have resolved and she feels the gas moving downward. She says she did finally begin passing gas yesterday after we saw her. She denies N/V, F/V and states she is ambulating well. Would like to shower. Physical Exam Gastrointestinal (Abdomen): Inspection/Auscultation: abdomen normal to inspection; abdomen not distended Percussion/Palpation: + abdomen tender (minimal TTP lower mid abdomen), + guarding (mild voluntary at lower mid abdomen palpation) and abdomen soft Results & Data Vital Signs (Past 12 Hours) Vital Signs Temp Pulse Resp BP Pulse Ox O2 Del Method 11/24/23 09:06 36.5 C 58 L 18 122/58 L 97 Room Air PG Care Time/CCT Total # of Minutes Spent Total Time Spent with Patient: Total time spent is greater than 50% in coordination of care (as documented) at patient's floor/unit and/or counseling patient: Coding Level of Care Code 70731 SUB INP/OBS CARE 04/25MIN Diagnoses Small bowel obstruction K56.609
--- NOTE | 2023-11-24 18:28 | Communication Note ---
Date of Service: November 24, 2023 Per nursing, patient tolerating PO sips and chips. Will advance to clear liquid diet, lactose intolerant. If she does not tolerate well, communicated to nursing to back down to sips and chips. Order placed.
--- NOTE | 2023-11-24 19:06 | Billing Data ---
Date of Service November 24, 2023 Coding Level of Care Code 59805 SUB INP/OBS CARE
[2023-11-25 07:20] LABS: BUN Creatinine Ratio 17.5 (10-20); Calcium 8.6 mg/dl (8.6-10.3); Est GFR (Non-African American) 87.1 ml/min; Potassium 4.1 mmol/L (3.5-5.1)
--- NOTE | 2023-11-25 07:44 | Hospitalist Progress Note ---
Date of Service November 25, 2023 Assessment & Plan (1) Small bowel obstruction: (2) Epigastric abdominal pain: (3) Hypothyroid: Plan (1) Small bowel obstruction High-Grade Small Bowel Obstruction - Surgery consulted. No surgical intervention needed at this time. Sips and chips and advance to clear liquid if tolerated. If diet can be advanced, she requested lactose free and low sugar diet. Can consider NG tube, but per surgery can hold for now. PRN morphine, tylenol, toradol and zofran. Pantoprazole 40mg IV daily Dulcolax suppository daily as needed. BMP tomorrow. (2) Hypothyroid Continue home levothryroxine 75 mcg (3) Dehydration #resolved (4) Difficulty sleeping: Will order 0.5mg Ativan at bedtime PRN for sleep. Discussed the side effects of the medication with the patient. (5) Hypoglycemia #resolved - 1 episode, BS 66 on 11/23 morning. She took two oral glucose tabs. Low risk, non-diabetic. Admission and Anticipated Discharge Date Admission Date: November 23, 2023 Supervising Physician Co-Signing Physician Notes I personally examined the patient and verified all craig points of history and exam, discussed case, and agree with decision making with Dr Jean-Baptiste feeling pretty good. A little bit more bowel movements. Tolerating clear liquids wellno increase in pain or nausea. Vitals noted, in general she is awake and alert pleasant no distress. HEENT normocephalic atraumatic mucous membranes moist. Breathing unlabored no accessory muscle use good effort. Skin without rashes pallor or icterus. Neuro without focal deficits. Small bowel obstructionalmost certainly adhesional. Improving nicely. Continue to advance diet DVT prophylaxiscurrently ambulation, she is ambulating well Kemal Barba is a pleasant 78 yo F resting in bed. Presented to the ER 11/22/2023 with complaints of abdominal pain, early satiety, and nausea. Has a Hx of SBO approx 10 years ago which did not require surgical intervention. CT-AP showed high- grade small bowel obstruction. Surgery consulted, no surgical intervention needed at this time - surgery following. Today, she currently denies any n/v, but endorses abdominal gas discomfort. Reports bowel movements yesterday and this morning along with flatus. Reports that stomach is soft, improved. Morphine made her dizzy w/ headache earlier in stay but it took pain away. Patient reports only mild abdominal pain today. She reports that she slept well again last night, without any Ativan. Review of Systems Constitutional: no fever, no chills, no fatigue and no weakness Respiratory: no cough and no chest congestion Cardiovascular: no chest pain and no palpitations Gastrointestinal: + bloating and + constipation (passing h andrea stools this morning); no nausea and no vomiting Neurologic: no tingling, no numbness and no headache(s) Physical Exam Constitutional: WD/WN, vitals as above Respiratory: normal respiratory effort, lungs clear to auscultation Cardiovascular: RRR, no murmur, no edema Gastrointestinal (Abdomen): Inspection/Auscultation: + abdomen distended and normal bowel sounds Percussion/Palpation: + abdomen tender and + abdomen firm; no hepatosplenomegaly Psychiatric: A+Ox3, euthymic affect Results & Data Results & Data Vital Signs (Past 12 Hours) Vital Signs Temp Pulse Resp BP Pulse Ox O2 Del Method 11/24/23 20:58 36.9 C 62 16 136/78 96 Room Air Resident Activity Tracking Resident Involvement: Resident Care Provided Care Provided: Adult Hospital Medicine
--- NOTE | 2023-11-25 15:25 | Billing Data ---
Date of Service November 25, 2023 Coding Level of Care Code 69445 SUB INP/OBS CARE
--- NOTE | 2023-11-25 15:28 | Surgery Progress Note ---
Date of Service November 25, 2023 Assessment & Plan (1) Small bowel obstruction: Plan: Pt here with concern for SBO Her presenting symptoms are improved Pain controlled and she is having + bowel function Her diet is being advanced from liquids to low fiber today As long as she continues to tolerate a diet she may be d/c'd from our standpoint. she expresses wishes to stay until tomorrow, will leave this up to medicine We will sign off, no plans for surgery. please call back if questions/concerns Admission and Anticipated Discharge Date Admission Date: November 23, 2023 Supervising Physician Co-Signing Physician Notes I have seen and examined this patient this am and I agree with this plan Subjective patient feeling well. tolerating advancing diet. + bowel function. pain controlled. up ambulating halls frequently. wishes to stay until tomorrow Physical Exam Physical Exam: awake/alert, no distress Respiratory: normal respiratory effort Gastrointestinal (Abdomen): Percussion/Palpation: abdomen soft Results & Data Vital Signs (Past 12 Hours) Vital Signs Temp Pulse Resp BP Pulse Ox O2 Del Method 11/25/23 11:24 98.1 F 60 17 168/75 H 99 Room Air 11/25/23 08:08 97.5 F L 66 18 160/65 H 97 Room Air PG Care Time/CCT Total # of Minutes Spent Total Time Spent with Patient: Total time spent is greater than 50% in coordination of care (as documented) at patient's floor/unit and/or counseling patient: Coding Level of Care Code 26327 SUB INP/OBS CARE 25MIN Diagnoses Small bowel obstruction K56.609
[2023-11-25 15:43] VITALS: RESP 18
--- NOTE | 2023-11-26 06:39 | Discharge Summary ---
Date of Service November 26, 2023 Admission HPI Per Admitting Provider The patient is a 78-year-old female with a past medical history including hysterectomy about 20 years ago, then first bowel obstruction 3 years after that, and the second bowel obstruction 10 years after that. She has not had any symptoms since that time until today. Her pain has usually been in the right lower quadrant. She reports upon awakening this point she ate breakfast without a problem, she was then going about her day, and that shortly after eating lunch she developed severe epigastric upper abdominal pain, which is worse than she is ever had before, and is in a different location, as usually it is in the right lower quadrant. She did take Gaviscon at least 3 times today, without significant improvement. She also tried eating yogurt. Her last BM was this morning. CT scan of the abdomen and pelvis in the emergency department reveals a high-grade small bowel obstruction, with large fecal load throughout the colon. She denies any fevers or chills. As noted she has had nausea but no vomiting Admission Exam Per Admitting Provider Physical Exam: The patient is awake, alert and oriented 3, well developed and well nourished, normocephalic and atraumatic, lying in bed and in no acute distress. HEENT--PERRL, EOMI, mucous membranes and oropharynx dry. Neck--supple. No JVD. No bruits. Thyroid normal, trachea midline, no adenopathy. Heart--normal S1 and S2. No murmurs, rubs or gallops. Lungs--clear bilaterally, no respiratory distress, no accessory muscle use. Abdomen--decreased bowel sounds throughout. Mild epigastric tenderness and right mid quadrant pain palpation. Nondistended Extremities--no cyanosis or clubbing. No edema. Dermatologic--normal skin turgor, normal color, no abnormal lymph nodes, no rash. Neurologic--cranial nerves II through XII grossly intact. Rheumatologic--normal range of motion. Psychiatric--normal affect. Principal Diagnosis Small bowel obstruction Discharge Exam Constitutional WD/WN, vitals as above Respiratory normal respiratory effort, lungs clear to auscultation Cardiovascular RRR, no murmur, no edema Gastrointestinal (Abdomen) Inspection/Auscultation: + abdomen distended and normal bowel sounds Percussion/Palpation: + abdomen tender and + abdomen firm; no hepatosplenomegaly Psychiatric A+Ox3, euthymic affect Discharge Data Allergies Allergy/AdvReac Type Severity Reaction Status Date / Time aspartame Allergy Intermediate blisters Verified 06/25/23 09:18 in mouth sucralose Allergy Intermediate blisters Verified 06/25/23 09:18 in mouth metronidazole [From Flagyl] Allergy Mild lightheaded Verified 06/25/23 09:18 /nausea iron AdvReac Mild gas Verified 06/25/23 09:18 Consultations 11/23/23 03:54 ED Decision to Admit Stat 11/23/23 05:49 Consult General Surgery Routine Ordered Studies 11/22/23 23:05 CT abd pelvis IV con only Stat Hospital Course (1) Small bowel obstruction: (2) Epigastric abdominal pain: (3) Hypothyroid: Plan (1) Small bowel obstruction High-Grade Small Bowel Obstruction - Surgery consulted. No surgical intervention needed at this time. Sips and chips and advance to clear liquid if tolerated. If diet can be advanced, she requested lactose free and low sugar diet. Can consider NG tube, but per surgery can hold for now. PRN morphine, tylenol, toradol and zofran. Pantoprazole 40mg IV daily, Dulcolax suppository daily as needed. - Patient discharged and advised to eat low fiber (10-15 g fiber/day) diet, gradually increase fiber intake from 2-8 weeks as tolerated. In addition, she might benefit from smaller, more frequent meals and ensuring she drinks at least 64 fl. oz fluid/day. - Patient discharged on Miralax, 17 g, PO, daily to help constipation - Patient also provided w/ discharge instructions (2) Hypothyroid Continue home levothyroxine 75 mcg (3) Dehydration #resolved (4) Difficulty sleeping: Will order 0.5mg Ativan at bedtime PRN for sleep. Discussed the side effects of the medication with the patient. (5) Hypoglycemia #resolved - 1 episode, BS 66 on 11/23 morning. She took two oral glucose tabs. Low risk, non-diabetic. Total Time Total Time Spent Total Time Spent (In Minutes): <30 Discharge Plan Discharge Items Patient Disposition: Home - Self-Care Reason For Visit: HIGH GRADE SBO Discharge Diagnosis: Resolving small bowel obstruction Condition on Discharge: Good Activity: Resume your previous activity Non-emergency contact: Primary Care Provider Call non-emergency contact if: you have any medication questions and your pain is concerning for you Follow-up/Referrals: Loren Mendieta MD [Primary Care Provider] - 11/28/23 1:10 pm Diet: Low Fiber Addtl Attending Provider Instructions: You were admitted to the hospital for abdominal pain along with constipation and decreased bowel movements. You were treated with bowel rest, IV fluids, along with a gradual re-escalation of your diet from clear liquids back to a low-fiber diet. We would recommend you to: How to eat through the day: o Eat or drink small amounts every 2 hours. Large meals can cause more discomfort. Try to have 6-7 small meals or snacks spread out through the day. o Cut foods into small pieces. o Chew foods well and eat slowly. What to eat through the day: o Follow a Low Fibre Diet or a Liquid Diet (10-15 g fiber/day for 2 weeks, gradually increase) o Avoid any food that is tough or stringy (celery, tough meats). o Well-cooked vegetables, fruit and meat may be tolerated better. Use moist cooking methods (simmer, poach, stew, roast) versus dry cooking methods (grill, broil, barbecue). Sometimes pureed foods may be easier to digest. Aim to consume at least 6 cups of liquid through the day: o Sip liquids throughout the day instead of drinking large amounts at one time. o Do your best to drink as much as you can between your meals and snacks (juices, broths and water). o If you are losing weight, choose higher calorie liquids such as milk, yogurt drinks, cream soups or milkshakes. A discharge summary will be sent to your primary care physician to ensure continuity of care. Please bring this discharge summary with you to your next office appointment so that your provider can review it at that time. Follow-up appointments: We have requested a follow-up appointment with your primary care physician within one week of discharge. Please call their office if you do not hear from them. Keep all your follow-up appointments as already scheduled. If you cannot make an appointment, notify your provider. Medications: Your medication list has been reviewed and reconciled upon discharge to ensure accuracy and continuity of care. An updated list of all your medications is included with your hospital discharge paperwork. Please review this list closely, and make note of any changes. We sent a new medication called Miralax to your pharmacy. Take Miralax 17 g/1 capful, daily, regularly. Take your medications as instructed; do not skip a dose of your medicines. Make sure all of your doctors know every medicine you are taking (including [id number] medicines, vitamins, and supplements). Call your primary care provider before taking any new medicines (including tjct-[id number] medicines, vitamins, and supplements), because some of these may interact with your current medications, or may make your symptoms worse. Tell your primary care provider if you cannot afford your medications. CONTACT YOUR PRIMARY CARE PROVIDER if you experience any of the following: abdominal pain, nausea, vomiting, blood in the stool, fevers, chills Difficulty following your treatment plan, or difficulty taking medications CALL 911 OR GO TO THE EMERGENCY DEPARTMENT if you experience any of the following: Sudden, severe abdominal pain or nausea/vomiting Severe chest pain, or chest pain that radiates (moves) to your jaw or arm Sudden, severe shortness of breath or difficulty breathing Thank you for allowing us to participate in your care. Pending Studies at Discharge: No Stand-Alone Forms: My [facility], Smoking Cessation Medications and DC Order Prescriptions: New polyethylene glycol 3350 [Miralax] 17 gram/dose powder 17 g PO DAILY Qty: 850 0RF Continued levothyroxine 75 mcg tablet 75 mcg PO QAM chlorpheniramine maleate 12 mg tablet extended release 12 mg PO Q12H PRN (Reason: Allergy Symptoms) Rx Instructions: Unable to verify OTC meds at this date/time. multivitamin Tablet 1 tab PO QDL Rx Instructions: Unable to verify OTC meds at this date/time. ascorbic acid (vitamin C) [Vitamin C] 1,000 mg Tablet 1 g PO QDL Rx Instructions: Unable to verify OTC meds at this date/time. calcium carbonate [Calcium 600] 600 mg calcium (1,500 mg) Tablet 600 mg PO QDL Rx Instructions: Unable to verify OTC meds at this date/time. pseudoephedrine HCl 60 mg Tablet 60 mg PO Q6H PRN (Reason: allergy symptoms) Rx Instructions: Unable to verify OTC meds at this date/time. Discharge Orders: Discharge Order (Routine); Ordered 11/26/23 Ordered By: Leroy Arango/Other Patient Handouts: Small Bowel Obstruction Admission Data Admit Date/Time: 11/23/23 04:04 Attending Provider: lAlen Fernandez Admit Provider: Ammon Cazarse Primary Care Provider: Loren Mendieta Other Providers: Tanya Hernandez; Ammon Cazares Other Interventions: Discharge Summary Assessment (RN) Last Done: 11/26/23 12:35 Supervising Physician Co-Signing Physician Notes I personally examined the patient and verified all craig points of history and exam, discussed case, and agree with decision making with Dr Jean-Baptiste Feels good, tolerating diet, bowels moved a bit more. Feels up to going home. Vitals noted, in general she is awake and alert pleasant no distress. HEENT normocephalic atraumatic mucous membranes moist. Breathing unlabored no accessory muscle use good effort. Skin without rashes pallor or icterus. Neuro without focal deficits. Small bowel obstructionalmost certainly adhesional. Improving nicely. Safe/stable for home Resident Activity Tracking Resident Involvement: Resident Care Provided Care Provided: Adult Hospital Medicine
[2023-11-26 07:57] VITALS: BP 159/72; PULSE 69; TEMP 97.3; O2SAT 99
[2023-11-26 09:19] LABS: Anion Gap 8 (3-11); BUN Creatinine Ratio 15.7 (10-20); Blood Urea Nitrogen 11 mg/dl (6-23); Calcium 9.5 mg/dl (8.6-10.3); Carbon Dioxide 30 mmol/L (21-32); Chloride 101 mmol/L (98-107); Creatinine Clr Calc Pharmacy 50.4 ml/min; Est GFR (African American) 97.5 ml/min; Est GFR (Non-African American) 84.2 ml/min; Glucose 107 mg/dl (70-99(Fasting)); Sodium 139 mmol/L (136-145)
--- NOTE | 2023-11-26 17:45 | Billing Data ---
Date of Service November 26, 2023 Coding Level of Care Code 42565 IN/OBS DISCH 30 MIN/LESS
== END 2023-11-26 13:45 | disposition home or self-care (01) | DRG 390 ==
LOC: ED 20:17 → SUATTDRO 11-23 04:04 → 3N 11-23 04:04 → INTOOBSV 11-23 04:04 → 3N 11-23 05:48